=== PATIENT | male | born 1950 | race Caucasian/White ===

== ENCOUNTER 2018-03-20 06:41 | Outpatient (CLI) | payer OTHER | END 2018-03-20 23:59 | disposition home or self-care (01) | LOC: RAD 06:41 | PROVIDERS: ATTEND Family Medicine | DX: E05.90 Thyrotoxicosis, unspecified without thyrotoxic crisis or storm (principal); Z87.891 Personal history of nicotine dependence | CPT/HCPCS: 78014; A9516 ==

== ENCOUNTER 2019-10-03 10:25 | Outpatient (CLI) | payer OTHER ==
[2019-10-03 11:22] LABS: BASOPHILS % (AUTO) 0.7 % (0-1); EOSINOPHILS # (AUTO) 0.2 X10'3 (0-0.9); EOSINOPHILS % (AUTO) 2.2 % (0-6); HEMATOCRIT 39.9 % (42.0-52.0); HEMOGLOBIN 13.6 g/dl (14.0-17.9); LYMPHOCYTES # (AUTO) 1.9 X10'3 (1.1-4.8); LYMPHOCYTES % (AUTO) 26.6 % (21-51); MEAN CORPUSCULAR HEMOGLOBIN 32.9 PG (27.0-31.0); MEAN CORPUSCULAR VOLUME 96.8 FL (78-98); MEAN PLATELET VOLUME 7.8 FL (7.4-10.4); MONOCYTES # (AUTO) 0.5 X10'3 (0-0.9); MONOCYTES % (AUTO) 7.6 % (2-12); NEUTROPHILS # (AUTO) 4.4 X10'3 (1.8-7.7); NEUTROPHILS % (AUTO) 62.9 % (42-75); PLATELET COUNT 242 X10'3 (140-440); RED BLOOD COUNT 4.12 X10'6 (4.70-6.10); RED CELL DISTRIBUTION WIDTH 13.5 % (11.5-14.5); WHITE BLOOD COUNT 6.9 X10'3 (4.5-11.0)
[2019-10-03 11:27] LABS: CLARITY,URINE CLEAR (Clear); COLOR,URINE YELLOW (Yellow); GLUCOSE, URINE NEGATIVE (Neg); KETONES,URINE NEGATIVE (Neg); LEUKOCYTE ESTERASE ,URINE NEGATIVE (Neg); NITRITES, URINE NEGATIVE (Neg); OCCULT BLOOD,URINE NEGATIVE (Neg); PROTEIN,URINE NEGATIVE (Neg); UROBILINOGEN,URINE 0.2 E.U/dL (0.2-1.0)
[2019-10-03 11:28] LABS: UA COLLECTION TYPE CLN CATCH MIDSTREAM
[2019-10-03 11:46] LABS: ALANINE AMINOTRANSFERASE 25 U/L (12-78); ALBUMIN 3.2 G/DL (3.4-5.0); ALBUMIN/GLOBULIN RATIO 0.9 (1.1-1.5); ALKALINE PHOSPHATASE 93 IU/L (46-116); ANION GAP 8 (8-16); ASPARTATE AMINO TRANSFERASE 17 U/L (10-37); BILIRUBIN,TOTAL 0.5 MG/DL (0.1-1.0); BLOOD UREA NITROGEN 22 MG/DL (7-18); BUN/CREATININE RATIO 24.4 (5.4-32.0); CALCIUM 8.6 MG/DL (8.5-10.1); CHLORIDE 106 MMOL/L (99-107); CHOL/HDL RATIO 2.8 (0.00-4.99); CHOLESTEROL 152 MG/DL (0-200); GLUCOSE 85 MG/DL (70-104); HDL CHOLESTEROL 54 MG/DL (35-60); LDL CHOLESTEROL 93 MG/DL (50-100); SODIUM 142 MMOL/L (135-145); TOTAL CARBON DIOXIDE 27.9 MMOL/L (24-32); TOTAL PROTEIN 6.8 G/DL (6.4-8.2); TRIGLYCERIDES 69 MG/DL (20-135); eGFR 84 ML/MIN
== END 2019-10-03 23:59 | disposition home or self-care (01) ==
LOC: LAB 10:25
PROVIDERS: ATTEND Family Medicine
DX: Z00.00 Encounter for general adult medical examination without abnormal findings (principal)
CPT/HCPCS: 36415; 80053; 80061; 81003; 85025

== ENCOUNTER 2021-05-11 05:33 | Day surgery (SDC) | payer BC ==
[2021-05-05 11:31] LABS: BASOPHILS # (AUTO) 0.1 X10'3 (0-0.2); BASOPHILS % (AUTO) 1.2 % (0-1); EOSINOPHILS # (AUTO) 0.1 X10'3 (0-0.9); EOSINOPHILS % (AUTO) 1.6 % (0-6); LYMPHOCYTES # (AUTO) 1.5 X10'3 (1.1-4.8); LYMPHOCYTES % (AUTO) 26.4 % (21-51); MEAN CORPUSCULAR HEMOGLOBIN 32.1 PG (27.0-31.0); MEAN CORPUSCULAR HGB CONC 33.4 g/dL (33.0-36.5); MEAN CORPUSCULAR VOLUME 96.1 FL (78-98); MEAN PLATELET VOLUME 8.1 FL (7.4-10.4); MONOCYTES # (AUTO) 0.4 X10'3 (0-0.9); MONOCYTES % (AUTO) 7.5 % (2-12); NEUTROPHILS # (AUTO) 3.5 X10'3 (1.8-7.7); NEUTROPHILS % (AUTO) 63.3 % (42-75); PRE OP HEMATOCRIT 42.9 % (42.0-52.0); PRE OP HEMOGLOBIN 14.3 g/dL (14.0-17.9); PRE OP PLATELET COUNT 236 X10'3 (140-440); RED BLOOD COUNT 4.47 X10'6 (4.70-6.10); RED CELL DISTRIBUTION WIDTH 14.1 % (11.5-14.5)
[2021-05-05 11:50] LABS: ALBUMIN 3.6 G/DL (3.4-5.0); ALBUMIN/GLOBULIN RATIO 1.1 (1.1-1.5); ALKALINE PHOSPHATASE 95 IU/L (46-116); BLOOD UREA NITROGEN 25 MG/DL (7-18); BUN/CREATININE RATIO 30.9 (5.4-32.0); CALCIUM 9.1 MG/DL (8.5-10.1); CHLORIDE 105 MMOL/L (99-107); CREATININE 0.81 MG/DL (0.60-1.10); PRE OP ALT 32 U/L (30-65); PRE OP ANION GAP 7 (8-16); PRE OP AST 25 U/L (10-37); PRE OP BILIRUB, TOTAL 0.7 MG/DL (0.0-1.0); PRE OP GLUCOSE 93 MG/DL (70-104); PRE OP POTASSIUM 4.5 MMOL/L (3.4-5.1); PRE OP SODIUM 140 MMOL/L (135-145); TOTAL CARBON DIOXIDE 27.6 MMOL/L (24-32); eGFR > 90 ML/MIN
[~2021-05-11] VITALS: Ht 172.7 cm; Wt 74.0 kg
[~2021-05-11 05:33] MED LIST: ASPI-12 PO; CHOL200074 PO; CITA20TA28 PO; IBUP-24 PO; LOSA50TA3 PO; MAGN400C PO; MELA5TAB12 PO; MULT-1172 PO; RESV50CA PO; ROSU10TA2 PO; TURM500C4 PO; UBID1CAP54 PO; cefazolin/dext.iso 2gm/100ml IV ONE; famotidine 20mg tablet PO ONE; ringers solution, lacted 1,000 ML IV SCH
[2021-05-11 05:40] VITALS: BP 157/83
[2021-05-11] MEDS ORDERED: LIDOcaine 1% (10mg/ml) 2ml vial ONE (05:53)
[2021-05-11] MEDS ORDERED: BUPIVAcaine/PF 2.5 mg/ml (0.25%) 30ml vial ONE (06:43)
[2021-05-11] MEDS ORDERED: HYDROmorphone/PF 0.2 MG/ML SYRINGE IV PRN ×2 (07:15)
[2021-05-11] MEDS ORDERED: labetalol 20mg/4ml (5mg/ml) syringe IV PRN (07:15)
[2021-05-11] MEDS ORDERED: morphine 2 MG/ML inj. syringe IV PRN (07:15)
[2021-05-11] MEDS ORDERED: proCHLORperazine 10 MG/2 ml inj IV PRN (07:15)
[2021-05-11] MEDS ORDERED: hydrALAZINE 20mg/ml inj. IV PRN (07:15)
[2021-05-11] MEDS ORDERED: ondansetron/PF 4mg/2ml inj IV PRN (07:15)
[2021-05-11] MEDS ORDERED: ringers solution, lacted 1,000 ML IV SCH (07:15)
[2021-05-11] MEDS ORDERED: meperidine/PF 25mg/ml syringe IV PRN (07:15)
[2021-05-11] MEDS ORDERED: acetaminophen 1,000mg/100ml IV 100 ML IV PRN (07:15)
[2021-05-11] MEDS ORDERED: morphine 4 MG/ML inj SYRINge IV PRN (07:15)
[2021-05-11] MEDS ORDERED: midazolam 1 mg/ML 2ml injection ONE (07:17)
[2021-05-11] MEDS ORDERED: fentaNYL/PF 50MCG/1 ML 2ML syringe ONE (07:17)
[2021-05-11] MEDS ORDERED: LIDOcaine 0.5% (5mg/ml) 50ml vial ONE (07:32)
[2021-05-11 07:45] VITALS: BP 105/65
--- NOTE | 2021-05-11 07:45 | NUR ---
ADMITTED TO PACU FROM OR ACCOMPANIED BY ANESTHESIA. INTIAL PHYSICAL ASSESSMENT DONE AND RECORDED. REPORT RECEIVED FROM ANESTHESIA.
[2021-05-11 07:55] VITALS: BP 108/65
[2021-05-11 08:05] VITALS: BP 109/59
[2021-05-11 08:15] VITALS: BP 107/60
--- NOTE | 2021-05-11 08:20 | NUR ---
DISCHARGE CRITERIA MET, DISCHARGE INSTRUCTIONS GIVEN, DEMONSTRATES VERBAL UNDERSTANDING. DISCHARGED HOME IN GOOD CONDITION.
== END 2021-05-11 08:20 | disposition home or self-care (01) ==
LOC: PAS 05:33
PROVIDERS: ATTEND Orthopaedic Surgery Hand Surgery
DX: G56.01 Carpal tunnel syndrome, right upper limb (principal); M19.90 Unspecified osteoarthritis, unspecified site; I25.10 Atherosclerotic heart disease of native coronary artery without angina pectoris; I10 Essential (primary) hypertension; E78.5 Hyperlipidemia, unspecified; F32.9 Major depressive disorder, single episode, unspecified; Z98.890 Other specified postprocedural states; Z95.5 Presence of coronary angioplasty implant and graft; Z79.899 Other long term (current) drug therapy; Z87.891 Personal history of nicotine dependence; Z79.82 Long term (current) use of aspirin
CPT/HCPCS: 36415; 64721; 80053; 82948; 85025; 93005; J2001; J2250; J3010; J3490; A4215; J7120

== ENCOUNTER 2021-06-22 07:16 | Day surgery (SDC) | payer BC ==
[2021-06-15 15:21] LABS: ALBUMIN 3.3 G/DL (3.4-5.0); ALKALINE PHOSPHATASE 101 IU/L (46-116); BLOOD UREA NITROGEN 22 MG/DL (7-18); CALCIUM 8.5 MG/DL (8.5-10.1); CHLORIDE 108 MMOL/L (99-107); CREATININE 0.88 MG/DL (0.60-1.10); PRE OP ALT 24 U/L (30-65); PRE OP ANION GAP 10 (8-16); PRE OP AST 14 U/L (10-37); PRE OP BILIRUB, TOTAL 0.5 MG/DL (0.0-1.0); PRE OP GLUCOSE 93 MG/DL (70-104); PRE OP POTASSIUM 4.3 MMOL/L (3.4-5.1); PRE OP SODIUM 145 MMOL/L (135-145); TOTAL CARBON DIOXIDE 26.7 MMOL/L (24-32); TOTAL PROTEIN 6.6 G/DL (6.4-8.2); eGFR 86 ML/MIN
[2021-06-15 15:22] LABS: BASOPHILS # (AUTO) 0.1 X10'3 (0-0.2); EOSINOPHILS # (AUTO) 0.1 X10'3 (0-0.9); EOSINOPHILS % (AUTO) 2.1 % (0-6); LYMPHOCYTES # (AUTO) 1.5 X10'3 (1.1-4.8); LYMPHOCYTES % (AUTO) 28.2 % (21-51); MEAN CORPUSCULAR HEMOGLOBIN 32.2 PG (27.0-31.0); MEAN CORPUSCULAR HGB CONC 33.2 g/dL (33.0-36.5); MEAN CORPUSCULAR VOLUME 96.8 FL (78-98); MEAN PLATELET VOLUME 8.5 FL (7.4-10.4); MONOCYTES # (AUTO) 0.4 X10'3 (0-0.9); MONOCYTES % (AUTO) 7.8 % (2-12); NEUTROPHILS # (AUTO) 3.2 X10'3 (1.8-7.7); NEUTROPHILS % (AUTO) 60.9 % (42-75); PRE OP HEMATOCRIT 42.1 % (42.0-52.0); PRE OP PLATELET COUNT 211 X10'3 (140-440); RED BLOOD COUNT 4.35 X10'6 (4.70-6.10); RED CELL DISTRIBUTION WIDTH 13.3 % (11.5-14.5)
[~2021-06-22] VITALS: Ht 172.7 cm; Wt 70.4 kg
[2021-06-22 07:30] VITALS: BP 191/93
[2021-06-22] MEDS ORDERED: LIDOcaine 0.5% (5mg/ml) 50ml vial ONE (10:28)
[2021-06-22] MEDS ORDERED: midazolam 1 mg/ML 2ml injection ONE (10:30)
[2021-06-22] MEDS ORDERED: fentaNYL/PF 50MCG/1 ML 2ML syringe ONE (10:30)
[2021-06-22] MEDS ORDERED: BUPIVAcaine/PF 2.5mg/ml (0.25%) 10ml vial ONE (10:40)
[2021-06-22] MEDS ORDERED: hydrALAZINE 20mg/ml inj. IV ONE (10:42)
[2021-06-22 11:00] VITALS: BP 159/72
--- NOTE | 2021-06-22 11:00 | NUR ---
ADMITTED TO PACU FROM OR ACCOMPANIED BY ANESTHESIA. INTIAL PHYSICAL ASSESSMENT DONE AND RECORDED. REPORT RECEIVED FROM ANESTHESIA.
[2021-06-22 11:10] VITALS: BP 156/70
[2021-06-22 11:20] VITALS: BP 155/72
[2021-06-22 11:30] VITALS: BP 154/70
[2021-06-22 11:40] VITALS: BP 164/72
--- NOTE | 2021-06-22 11:45 | NUR ---
DISCHARGE CRITERIA MET, DISCHARGE INSTRUCTIONS GIVEN, DEMONSTRATES VERBAL UNDERSTANDING. DISCHARGED HOME IN GOOD CONDITION.
== END 2021-06-22 11:45 | disposition home or self-care (01) ==
LOC: PAS 07:16
PROVIDERS: ATTEND Orthopaedic Surgery Hand Surgery
DX: G56.02 Carpal tunnel syndrome, left upper limb (principal); E78.5 Hyperlipidemia, unspecified; I10 Essential (primary) hypertension; Z20.822 Contact with and (suspected) exposure to COVID-19; Z79.899 Other long term (current) drug therapy; Z98.890 Other specified postprocedural states; Z79.82 Long term (current) use of aspirin; Z87.891 Personal history of nicotine dependence
CPT/HCPCS: 36415; 64721; 80053; 82948; 85025; J0360; J2001; J2250; J3010; J3490; U0003; U0005; Z7506; Z7512; A4215; J7120

== ENCOUNTER → 2021-08-18 | Outpatient (CLI) | payer BC ==
[~2021-08-18] MED LIST changes: -cefazolin/dext.iso 2gm/100ml IV ONE; -famotidine 20mg tablet PO ONE; -ringers solution, lacted 1,000 ML IV SCH
[2021-08-18 10:00] LABS: BASOPHILS % (AUTO) 0.9 % (0-1); EOSINOPHILS # (AUTO) 0.1 X10'3 (0-0.9); EOSINOPHILS % (AUTO) 1.8 % (0-6); HEMATOCRIT 41.4 % (42.0-52.0); LYMPHOCYTES # (AUTO) 1.3 X10'3 (1.1-4.8); LYMPHOCYTES % (AUTO) 26.4 % (21-51); MEAN CORPUSCULAR HEMOGLOBIN 32.6 PG (27.0-31.0); MEAN CORPUSCULAR HGB CONC 33.9 g/dL (33.0-36.5); MEAN CORPUSCULAR VOLUME 96.2 FL (78-98); MEAN PLATELET VOLUME 8.3 FL (7.4-10.4); MONOCYTES # (AUTO) 0.3 X10'3 (0-0.9); MONOCYTES % (AUTO) 7.1 % (2-12); NEUTROPHILS # (AUTO) 3.1 X10'3 (1.8-7.7); NEUTROPHILS % (AUTO) 63.8 % (42-75); PLATELET COUNT 237 X10'3 (140-440); RED CELL DISTRIBUTION WIDTH 13.6 % (11.5-14.5); WHITE BLOOD COUNT 4.9 X10'3 (4.5-11.0)
[2021-08-18 10:15] LABS: COLOR,URINE YELLOW (Yellow); UA COLLECTION TYPE VOIDED
[2021-08-18 10:16] LABS: CLARITY,URINE CLEAR (Clear); GLUCOSE, URINE NEGATIVE (Neg); KETONES,URINE NEGATIVE (Neg); LEUKOCYTE ESTERASE ,URINE NEGATIVE (Neg); NITRITES, URINE NEGATIVE (Neg); OCCULT BLOOD,URINE NEGATIVE (Neg); PROTEIN,URINE NEGATIVE (Neg); UROBILINOGEN,URINE 0.2 E.U/dL (0.2-1.0)
[2021-08-18 10:24] LABS: ALANINE AMINOTRANSFERASE 32 U/L (12-78); ALBUMIN 3.4 G/DL (3.4-5.0); ALKALINE PHOSPHATASE 83 IU/L (46-116); ASPARTATE AMINO TRANSFERASE 22 U/L (10-37); BILIRUBIN,TOTAL 0.5 MG/DL (0.1-1.0); BLOOD UREA NITROGEN 21 MG/DL (7-18); BUN/CREATININE RATIO 27.3 (5.4-32.0); CALCIUM 8.8 MG/DL (8.5-10.1); CHLORIDE 106 MMOL/L (99-107); CHOL/HDL RATIO 2.3 (0.00-4.99); CHOLESTEROL 153 MG/DL (0-200); CREATININE 0.77 MG/DL (0.60-1.10); GLUCOSE 92 MG/DL (70-104); HDL CHOLESTEROL 66 MG/DL (35-60); LDL CHOLESTEROL 78 MG/DL (50-100); TOTAL CARBON DIOXIDE 29.6 MMOL/L (24-32); TOTAL PROTEIN 6.9 G/DL (6.4-8.2); TRIGLYCERIDES 42 MG/DL (20-135); eGFR > 90 ML/MIN
[2021-08-18 10:28] LABS: C-REACTIVE PROTEIN < 0.05 MG/DL (0.0-0.5); POTASSIUM 4.4 MMOL/L (3.5-5.1); SODIUM 141 MMOL/L (135-145)
[2021-08-18 11:16] LABS: ANION GAP 5 (8-16)
== END | disposition home or self-care (01) ==
LOC: RAD 08:58
PROVIDERS: ATTEND Family Medicine
DX: M50.323 Other cervical disc degeneration at C6-C7 level (principal); G31.89 Other specified degenerative diseases of nervous system; G95.89 Other specified diseases of spinal cord; M25.78 Osteophyte, vertebrae; I65.23 Occlusion and stenosis of bilateral carotid arteries; R63.4 Abnormal weight loss; R29.898 Other symptoms and signs involving the musculoskeletal system; R20.0 Anesthesia of skin; R53.83 Other fatigue; R53.81 Other malaise; M62.521 Muscle wasting and atrophy, not elsewhere classified, right upper arm; M62.522 Muscle wasting and atrophy, not elsewhere classified, left upper arm
CPT/HCPCS: 36415; 70551; 71046; 71250; 71271; 72052; 72141; 80053; 80061; 81003; 82043; 82570; 84439; 84443; 85025; 85651; 86140; 93880

== ENCOUNTER 2021-10-09 08:21 | Outpatient (CLI) | payer BC | END 2021-10-09 23:59 | disposition home or self-care (01) | LOC: RAD 08:21 | PROVIDERS: ATTEND Family Medicine | DX: E04.2 Nontoxic multinodular goiter (principal) | CPT/HCPCS: 76536 ==

== ENCOUNTER 2021-11-05 09:11 | Outpatient (CLI) | payer BC | END 2021-11-05 23:59 | disposition home or self-care (01) | LOC: 64 CT 09:11 | PROVIDERS: ATTEND Orthopaedic Surgery | DX: M50.00 Cervical disc disorder with myelopathy, unspecified cervical region (principal); M48.02 Spinal stenosis, cervical region; M25.78 Osteophyte, vertebrae; M85.88 Other specified disorders of bone density and structure, other site; R91.1 Solitary pulmonary nodule; E04.2 Nontoxic multinodular goiter | CPT/HCPCS: 72125 ==

== ENCOUNTER 2021-11-16 09:57 | Outpatient (CLI) | payer BC ==
[2021-11-16 11:34] LABS: GLU TOLERANCE INTERP SEE INTERP
[2021-11-16 11:41] LABS: GLUCOSE,FASTING (TOLERANCE) 90 MG/DL (70-104)
[2021-11-16 12:43] LABS: HIV ANTIBODY 1&2 RAPID NON-REACTIVE (Neg)
[2021-11-17 13:06] LABS: ANTINUCLEAR ANTIBODIES Negative (Negative); IMMUNOGLOBULIN A, QN, SERUM 268 mg/dL (61-437); IMMUNOGLOBULIN G, QN, SERUM 1192 mg/dL (603-1613); IMMUNOGLOBULIN M, QN, SERUM 126 mg/dL (20-172)
[2021-11-18 17:43] LABS: T-TRANSGLUTAMINASE IGA <2 U/mL (0-3)
[2021-11-18 23:20] LABS: ANGIOTESIN-CONVERTING ENZYME 58 U/L (14-82)
== END 2021-11-16 23:59 | disposition home or self-care (01) ==
LOC: LAB 09:57
PROVIDERS: ATTEND Psychiatry & Neurology Neurology
DX: R20.2 Paresthesia of skin (principal); R53.1 Weakness; Z79.899 Other long term (current) drug therapy
CPT/HCPCS: 36415; 82164; 82175; 82570; 82607; 82746; 82784; 83655; 83825; 84425; 86038; 86235; 86334; 86592; 86618; 86703; 86803

== ENCOUNTER 2021-11-16 10:06 | Outpatient (CLI) | payer BC | END 2021-11-16 23:59 | disposition home or self-care (01) | LOC: LAB 10:06 | PROVIDERS: ATTEND Surgery | DX: R91.8 Other nonspecific abnormal finding of lung field (principal); J43.8 Other emphysema; I25.10 Atherosclerotic heart disease of native coronary artery without angina pectoris; I70.0 Atherosclerosis of aorta; E04.9 Nontoxic goiter, unspecified; K44.9 Diaphragmatic hernia without obstruction or gangrene; N28.1 Cyst of kidney, acquired; M48.14 Ankylosing hyperostosis [Forestier], thoracic region | CPT/HCPCS: 71250 ==

== ENCOUNTER 2021-11-27 07:33 | Day surgery (SDC) | payer BC ==
[2021-11-27] VITALS (14 sets, daily range): BP systolic 114–206; BP diastolic 74–120
[~2021-11-27] VITALS: Ht 172.7 cm; Wt 74.8 kg
[2021-11-27] MEDS ORDERED: ASPI-611 PO (08:51)
[2021-11-27] MEDS ORDERED: DULO30CA52 PO (08:51)
[2021-11-27] MEDS ORDERED: VARE1TAB24 PO (08:51)
[2021-11-27 13:38] LABS: GLUCOSE,CSF 56 MG/DL (40-75); TOTAL PROTEIN,CSF 68 MG/DL (30-60)
[2021-11-27 14:15] LABS: APPEARANCE,CSF CLOUDY
[2021-11-27 14:16] LABS: CSF RBC 5175 /CU MM (0); CSF SUPERNATANT COLOR PINK; CSF VOLUME 13 ML; CSF WBC CT 5 /CU MM (0-5); TUBE# COUNTED 3
== END 2021-11-27 14:03 | disposition home or self-care (01) ==
LOC: SSTAY O 07:33
PROVIDERS: ATTEND Psychiatry & Neurology Neurology
DX: G62.9 Polyneuropathy, unspecified (principal); I10 Essential (primary) hypertension; E03.9 Hypothyroidism, unspecified; E78.5 Hyperlipidemia, unspecified; F32.9 Major depressive disorder, single episode, unspecified; Z72.0 Tobacco use; Z85.828 Personal history of other malignant neoplasm of skin; Z98.890 Other specified postprocedural states; Z79.899 Other long term (current) drug therapy
CPT/HCPCS: 36415; 62328; 77012; 82164; 82945; 84157; 87476; 89051

== ENCOUNTER 2021-12-14 08:10 | Outpatient (CLI) | payer BC ==
[2021-12-14] VITALS (8 sets, daily range): BP systolic 160–195; BP diastolic 76–98
[~2021-12-14] VITALS: Ht 172.7 cm; Wt 75.3 kg
[~2021-12-14 08:10] MED LIST changes: -ASPI-12 PO; +ASPI-611 PO; +DULO30CA52 PO; -IBUP-24 PO; -MAGN400C PO; -MELA5TAB12 PO; +VARE1TAB24 PO
[2021-12-14] MEDS ORDERED: regadenoson 0.4mg/5ml syringe IV ONE (09:10)
[2021-12-14] MEDS ORDERED: nitroGLYCERIN 0.4mg SUBLingual tab SL PRN (09:10)
[2021-12-14] MEDS ORDERED: aminophylline 250mg/10ml inj. IV PRN (09:10)
== END 2021-12-14 23:59 | disposition home or self-care (01) ==
LOC: CARD DIAG 08:10
PROVIDERS: ATTEND Internal Medicine Interventional Cardiology
DX: Z01.818 Encounter for other preprocedural examination (principal); I08.0 Rheumatic disorders of both mitral and aortic valves; I25.10 Atherosclerotic heart disease of native coronary artery without angina pectoris; I11.9 Hypertensive heart disease without heart failure; Z95.5 Presence of coronary angioplasty implant and graft
CPT/HCPCS: 78452; 93017; 93306; A9500; J0280; J2785

== ENCOUNTER 2021-12-31 06:35 | Day surgery (SDC) | payer BC ==
[~2021-12-31] VITALS: Ht 172.7 cm; Wt 76.6 kg
[2021-12-31] VITALS (15 sets, daily range): BP systolic 141–162; BP diastolic 64–94
[2021-12-31] MEDS ORDERED: acetaminophen 325mg tablet PO ONE (07:15)
[2021-12-31] MEDS ORDERED: diphenhydrAMINE 25mg capsule PO ONE (07:20)
[2021-12-31] MEDS ORDERED: IMMUNE GLOBUL IV ONE (07:30)
[2021-12-31] MEDS ORDERED: IGA AVG IV ONE (07:30)
[2021-12-31] MEDS ORDERED: GLY IV ONE (07:30)
[2021-12-31] MEDS ORDERED: epiNEPHrine 1 mg/ml inj IM PRN (07:50)
--- NOTE | 2021-12-31 13:50 | NUR ---
Patient stable for discharge s/p IV infusion. Patient a/o x 4 with stable vital signs. Patient tolerating PO intake and able to void at time of discharge. Patient ambulated to [facility] for transport home by self.
== END 2021-12-31 13:50 | disposition home or self-care (01) ==
LOC: SSTAY O 06:35
PROVIDERS: ATTEND Psychiatry & Neurology Neurology
DX: G61.81 Chronic inflammatory demyelinating polyneuritis (principal)
CPT/HCPCS: 96374; J1459; Q0163

== ENCOUNTER 2022-02-10 23:56 | Inpatient (IN) | payer BC, MEDICARE ==
[~2022-02-10] VITALS: Ht 172.7 cm; Wt 77.6 kg
[2022-02-11] VITALS (9 sets, daily range): BP systolic 141–179; BP diastolic 53–87
[2022-02-11] MEDS ORDERED: fentaNYL/PF 50MCG/1 ML 2ML syringe IV ONE ×2 (03:10→08:25)
[2022-02-11 03:13] LABS: BASOPHILS # (AUTO) 0.1 X10'3 (0-0.2); BASOPHILS % (AUTO) 0.9 % (0-1); EOSINOPHILS # (AUTO) 0.2 X10'3 (0-0.9); EOSINOPHILS % (AUTO) 2.5 % (0-6); HEMOGLOBIN 10.9 g/dl (14.0-17.9); LYMPHOCYTES % (AUTO) 12.2 % (21-51); MEAN CORPUSCULAR HEMOGLOBIN 30.5 PG (27.0-31.0); MEAN CORPUSCULAR VOLUME 92.4 FL (78-98); MEAN PLATELET VOLUME 7.3 FL (7.4-10.4); MONOCYTES # (AUTO) 0.7 X10'3 (0-0.9); MONOCYTES % (AUTO) 8.7 % (2-12); NEUTROPHILS # (AUTO) 6.2 X10'3 (1.8-7.7); NEUTROPHILS % (AUTO) 75.7 % (42-75); PLATELET COUNT 362 X10'3 (140-440); RED BLOOD COUNT 3.58 X10'6 (4.70-6.10); RED CELL DISTRIBUTION WIDTH 14.2 % (11.5-14.5); WHITE BLOOD COUNT 8.2 X10'3 (4.5-11.0)
[2022-02-11 03:30] LABS: APTT 30 SECONDS (22-32)
[2022-02-11 03:33] LABS: ALANINE AMINOTRANSFERASE 27 U/L (12-78); ALBUMIN 2.7 G/DL (3.4-5.0); ALBUMIN/GLOBULIN RATIO 0.6 (1.1-1.5); ALKALINE PHOSPHATASE 101 IU/L (46-116); ANION GAP 8 (8-16); ASPARTATE AMINO TRANSFERASE 25 U/L (10-37); BILIRUBIN,TOTAL 0.3 MG/DL (0.1-1.0); BLOOD UREA NITROGEN 17 MG/DL (7-18); BUN/CREATININE RATIO 18.9 (5.4-32.0); CALCIUM 8.4 MG/DL (8.5-10.1); CHLORIDE 102 MMOL/L (99-107); GLUCOSE 107 MG/DL (70-104); POTASSIUM 4.1 MMOL/L (3.5-5.1); SODIUM 137 MMOL/L (135-145); TOTAL CARBON DIOXIDE 26.8 MMOL/L (24-32); TOTAL PROTEIN 6.9 G/DL (6.4-8.2); eGFR 83 ML/MIN
[2022-02-11] MEDS ORDERED: iohexol 350MG/ML 100ml bottle IV ONE (03:33)
[2022-02-11] MEDS ORDERED: iohexol 350 MG/ML 50ML vial IV ONE (03:33)
--- NOTE | 2022-02-11 04:00 | NUR ---
Pt presents to Ed with left leg swelling and redness. Pt had a spinal fusion a couple days prior and concerned about a blood clot. Pt has 1 + edema, non pitting. 2 + bilat LE pulses equal. Pt reports no injury. States that this happened a couple hours prior. No acute distress noted.
--- NOTE | 2022-02-11 04:08 | NUR ---
pt to ct
--- NOTE | 2022-02-11 05:34 | NUR ---
Pt currently getting vascular US.
[2022-02-11] MEDS ORDERED: colchicine 0.6mg tablet PO ONE (05:50)
[2022-02-11] MEDS ORDERED: heparin 10,000 units/1 ML INJ IV ONE ×3 (07:50→08:25)
[2022-02-11] MEDS ORDERED: heparin 10,000 units/1 ML INJ IV PRN ×3 (07:50→08:25)
--- NOTE | 2022-02-11 08:00 | NUR ---
at bedside to assess pt's leg with US.
[2022-02-11] MEDS ORDERED: heparin 25,000 UNIT/250ml bag 250 ML IV SCH ×2 (08:20→08:25)
--- NOTE | 2022-02-11 08:20 | NUR ---
Pt complaining of LLE pain. MD notified, received orders to repeat Fentanyl dose as previously ordered.
[2022-02-11] MEDS ORDERED: potassium CL 10mEq/100ml bag 100 ML IV PRN (08:25)
[2022-02-11] MEDS ORDERED: acetaminophen 325mg tablet PO PRN (08:25)
[2022-02-11] MEDS ORDERED: HYDROmorphone/PF 0.2 MG/ML SYRINGE IV PRN ×3 (08:25→16:45)
[2022-02-11] MEDS ORDERED: potassium Cl 20 mEq SR tablet PO PRN ×2 (08:25)
[2022-02-11] MEDS ORDERED: magnesium 4gm in 100ml NS 100 ML IV PRN (08:25)
[2022-02-11] MEDS ORDERED: ondansetron/PF 4mg/2ml inj IV PRN ×2 (08:25→16:45)
[2022-02-11] MEDS ORDERED: magnesium 2GM in 50ml NS 50 ML IV PRN (08:25)
[2022-02-11] MEDS ORDERED: HYDROmorphone inj. 0.5 MG/0.5 ML DISP.SYRIN IV PRN (08:25)
[2022-02-11] MEDS ORDERED: PERFLUTREN PROTEIN-A MICROSPHR (Optison) 0.22 MG/ML 3ML VIAL IV ONE (08:25)
[2022-02-11] MEDS ORDERED: hydrALAZINE 20mg/ml inj. IV PRN (08:35)
--- NOTE | 2022-02-11 09:06 | NUR ---
US tech at bedside for further studies as ordered.
[2022-02-11] MEDS: heparin 25,000 UNIT/250ml bag 250 ML IV SCH ×2 (09:52→21:15)
--- NOTE | 2022-02-11 10:10 | NUR ---
Heparin gtt started per order. US still at bedside for imaging studies. Pt resting comfortably, family member at bedside.
[2022-02-11] MEDS ORDERED: HYDR-3972 PO (10:34)
[2022-02-11] MEDS ORDERED: DOCU-342 PO (10:34)
[2022-02-11] MEDS ORDERED: CEPH-585 PO (10:34)
[2022-02-11] MEDS ORDERED: CYCL5TAB PO (10:34)
[2022-02-11] MEDS ORDERED: GABA600T PO (10:34)
[2022-02-11] MEDS ORDERED: RESV1TAB2 PO (10:38)
[2022-02-11] MEDS ORDERED: heparin 10,000 units/1 ML INJ ONE (12:27)
[2022-02-11] MEDS ORDERED: iohexol 300 MG/1 ML 50ml polymer ONE (12:34)
--- NOTE | 2022-02-11 12:50 | NUR ---
Heparin paused for 120 mins per protocol
--- NOTE | 2022-02-11 12:51 | NUR ---
REPEAT PTT ORDERED FOR 1500.
[2022-02-11] MEDS ORDERED: LIDOCAINE 1% w/preservative (10 MG/ML) inj. 10mL VIAL ONE (13:27)
[2022-02-11] MEDS ORDERED: iohexol 300mg/ml 100ml inj. ONE (13:27)
[2022-02-11] MEDS ORDERED: fentaNYL/PF 50MCG/1 ML 2ML syringe ONE ×3 (13:27→14:41)
[2022-02-11] MEDS ORDERED: heparin 1,000 UNITS/NS 500ml 500 ML ONE (13:27)
[2022-02-11] MEDS ORDERED: midazolam 1 mg/ML 2ml injection ONE ×3 (13:51→14:33)
[2022-02-11] MEDS ORDERED: hydrALAZINE 20mg/ml inj. IV ONE (14:01)
[2022-02-11] MEDS ORDERED: fentaNYL /PF 50mcg/ml 5ml ampule ONE (14:33)
--- NOTE | 2022-02-11 15:44 | NUR ---
2250 Keith Melgar, Dr. Colon called to say OR was awaiting for vein mapping. Do you have an et? Thanks Neha ext [phone]
[2022-02-11 15:53] LABS: APTT 37 SECONDS (22-32)
[2022-02-11] MEDS ORDERED: rocuronium 10mg/ml inj IV ONE (16:40)
[2022-02-11] MEDS ORDERED: cefazolin/dext.iso 2,000MG/50 ML BAG IV ONE (16:40)
[2022-02-11] MEDS ORDERED: sevoflurane 250ml liquid IH ONE (16:40)
[2022-02-11] MEDS ORDERED: dexamethasone sod phosphate 10mg/ml inj ONE (16:40)
[2022-02-11] MEDS ORDERED: propofol 10mg/ml 20ml vial IV ONE (16:40)
[2022-02-11] MEDS ORDERED: LIDOcaine 1% (10mg/ml)w/preservative inj. 20ml MDV ONE (16:40)
[2022-02-11] MEDS ORDERED: morphine 4 MG/ML inj SYRINge IV PRN (16:45)
[2022-02-11] MEDS ORDERED: morphine 2 MG/ML inj. syringe IV PRN (16:45)
[2022-02-11] MEDS ORDERED: ringers solution, lacted 1,000 ML IV SCH (16:45)
[2022-02-11] MEDS ORDERED: HYDROcodone/acetaminophen 10/325mg tab PO PRN (16:55)
[2022-02-11] MEDS ORDERED: docusate sod 100mg capsule PO PRN (16:55)
[2022-02-11] MEDS ORDERED: propofol 1000mg/100ml bottle 100 ML IV ONE ×2 (17:54→20:27)
[2022-02-11] MEDS ORDERED: ketamine 50mg/5ml syringe ONE (18:05)
[2022-02-11] MEDS: ringers solution, lacted 1,000 ML IV SCH (18:20)
--- NOTE | 2022-02-11 18:25 | NUR ---
Problems reprioritized. Patient report given, questions answered & plan of care reviewed with peter HORN.
--- NOTE | 2022-02-11 18:27 | NUR ---
Patient arrived to unit at 1800 and placed on bedside monitor. ART line zeroed/transduced with SBP in the 160-180s; Dr. Sidhu with orders for Propofol and Fentanyl. 10mcg bolus of Diprivan showed improvement with SBP to the 140-150s. Other vital signs stable. Report given to Nelson HORN at the bedside with all questions answered.
[2022-02-11] MEDS: FENTANYL-0.9 % NACL/PF 100 ML IV PRN ×2 (18:34→23:35)
--- NOTE | 2022-02-11 19:00 | NUR ---
Received report from Donnell HORN as patient had just been transferred from OR.
[2022-02-11] MEDS: varenicline tartrate 1mg tablet PO SCH (20:00)
[2022-02-11] MEDS: docusate sod 100mg capsule PO SCH (20:00)
[2022-02-11] MEDS: K and/or MAG REPLACEMENT MC SCH (20:00)
[2022-02-11] MEDS: cephalexin 500mg capsule PO SCH (20:00)
[2022-02-11 20:03] LABS: APTT 46 SECONDS (22-32)
[2022-02-11] MEDS: propofol 1000mg/100ml bottle 100 ML IV SCH (20:35)
[2022-02-11] MEDS: normal saline 1000ml 1,000 ML IV SCH (20:55)
--- NOTE | 2022-02-11 20:59 | NUR ---
Dr. Mcdonald rounded on pt. Keep PTT 60-80 use protocol for titration. Turn heprin off as pt leaves for OR in the AM. Ok to place NG tube for medication administration. Keep pt on Propofol and fentanyl drip for pain and sedation over night and into OR.
[2022-02-11] MEDS: cyclobenzaprine 10mg tablet PO SCH (21:00)
[2022-02-11] MEDS: gabapentin 300mg capsule PO SCH (21:00)
[2022-02-12] VITALS (37 sets, daily range): BP systolic 97–202; BP diastolic 46–108
[2022-02-12 01:03] LABS: BASOPHILS % (AUTO) 0.3 % (0-1); EOSINOPHILS % (AUTO) 0.1 % (0-6); HEMATOCRIT 29.9 % (42.0-52.0); HEMOGLOBIN 10.2 g/dl (14.0-17.9); LYMPHOCYTES # (AUTO) 0.4 X10'3 (1.1-4.8); LYMPHOCYTES % (AUTO) 6.1 % (21-51); MEAN CORPUSCULAR HEMOGLOBIN 31.7 PG (27.0-31.0); MEAN CORPUSCULAR VOLUME 93.1 FL (78-98); MEAN PLATELET VOLUME 7.5 FL (7.4-10.4); MONOCYTES # (AUTO) 0.1 X10'3 (0-0.9); MONOCYTES % (AUTO) 2.5 % (2-12); NEUTROPHILS # (AUTO) 5.4 X10'3 (1.8-7.7); PLATELET COUNT 289 X10'3 (140-440); RED BLOOD COUNT 3.21 X10'6 (4.70-6.10); RED CELL DISTRIBUTION WIDTH 14.3 % (11.5-14.5); WHITE BLOOD COUNT 5.9 X10'3 (4.5-11.0)
[2022-02-12 01:18] LABS: ALANINE AMINOTRANSFERASE 25 U/L (12-78); ALBUMIN 2.3 G/DL (3.4-5.0); ALBUMIN/GLOBULIN RATIO 0.6 (1.1-1.5); ALKALINE PHOSPHATASE 97 IU/L (46-116); ANION GAP 5 (8-16); ASPARTATE AMINO TRANSFERASE 22 U/L (10-37); BILIRUBIN,TOTAL 0.4 MG/DL (0.1-1.0); BLOOD UREA NITROGEN 12 MG/DL (7-18); BUN/CREATININE RATIO 15.8 (5.4-32.0); CALCIUM 8.2 MG/DL (8.5-10.1); CHLORIDE 107 MMOL/L (99-107); CHOL/HDL RATIO 2.4 (0.00-4.99); CHOLESTEROL 129 MG/DL (0-200); CREATININE 0.76 MG/DL (0.60-1.10); GLUCOSE 131 MG/DL (70-104); HDL CHOLESTEROL 54 MG/DL (35-60); LDL CHOLESTEROL 70 MG/DL (50-100); POTASSIUM 4.3 MMOL/L (3.5-5.1); SODIUM 137 MMOL/L (135-145); TOTAL PROTEIN 6.1 G/DL (6.4-8.2); TRIGLYCERIDES 18 MG/DL (20-135); eGFR > 90 ML/MIN
[2022-02-12] MEDS ORDERED: albumin (Human) 5% 250ml 250 ML IV ONE ×2 (02:05)
--- NOTE | 2022-02-12 02:08 | NUR ---
Pt. Ptt >139 Dr Mcdonald notified. He wanted heparin stopped one hour and restarted at 1300 (200 U less). PT Urinary output tapering off to less than [address] Mcdonald ordered 500 ml of 5% albumin.
[2022-02-12] MEDS: normal saline 1000ml 1,000 ML IV SCH ×3 (02:55→21:39)
[2022-02-12] MEDS: propofol 1000mg/100ml bottle 100 ML IV SCH (03:16)
[2022-02-12 03:26] LABS: ABG HCO3 20.8 mmol/L (22.0-26.0); ABG OXYGEN SATURATION 98.5 % (94-97); ABG PCO2 (T) 31.7 mmHg (35.0-48.0); ABG PO2 (T) 136.3 mmHg (75.0-100.0); FCOHb 0.3 % (0.0-3.9); FMetHb 0.3 % (0.0-1.5); FO2Hb 97.9 % (94-97); PATIENT TEMPERATURE 36.6; PEEP 5 cm H2O; RESPIRATORY RATE 14 b/min; TIDAL VOLUME 475 mL; TOTAL HEMOGLOBIN 10.3 G/dl (14.0-18.0)
[2022-02-12] MEDS: heparin 25,000 UNIT/250ml bag 250 ML IV SCH (03:26)
[2022-02-12] MEDS: cephalexin 500mg capsule PO SCH ×4 (06:36→19:36)
[2022-02-12] MEDS ORDERED: VIT E ACETATE PO SCH (08:00)
[2022-02-12] MEDS: atorvastatin 20mg tablet PO SCH (08:00)
[2022-02-12] MEDS: losartan 50mg tablet PO SCH (08:00)
[2022-02-12] MEDS: cholecalciferol (vitamin D3) 1,000 unit (25mcg) tablet PO SCH (08:00)
[2022-02-12] MEDS ORDERED: RESVERATROL PO SCH (08:00)
[2022-02-12] MEDS: gabapentin 300mg capsule PO SCH ×3 (08:00→21:39)
[2022-02-12] MEDS: aspirin 81mg, enteric-coated 1 TAB TABLET.DR PO SCH (08:00)
[2022-02-12] MEDS: K and/or MAG REPLACEMENT MC SCH ×2 (08:00→19:38)
[2022-02-12] MEDS ORDERED: GRAPE SKIN EXTRACT PO SCH (08:00)
[2022-02-12] MEDS: cyclobenzaprine 10mg tablet PO SCH ×3 (08:00→21:35)
[2022-02-12] MEDS ORDERED: UBIDECARENONE PO SCH (08:00)
[2022-02-12] MEDS: citalopram 20mg tablet PO SCH (08:00)
[2022-02-12] MEDS: duloxetine 30mg CAPSULE.DR PO SCH (08:00)
[2022-02-12] MEDS: multivitamins, therapeutics tablet PO SCH (08:00)
[2022-02-12] MEDS: varenicline tartrate 1mg tablet PO SCH ×2 (08:00→20:00)
[2022-02-12] MEDS: docusate sod 100mg capsule PO SCH ×2 (08:00→19:36)
[2022-02-12] MEDS: FENTANYL-0.9 % NACL/PF 100 ML IV PRN ×2 (09:15→21:54)
--- NOTE | 2022-02-12 09:24 | NUR ---
Surgery called will pharmacy picking tech pt at 0930 heparin turned off as per Dr. Mcdonald
[2022-02-12] MEDS ORDERED: heparin 10,000 units/1 ML INJ ONE (09:30)
[2022-02-12] MEDS ORDERED: sevoflurane 250ml liquid IH ONE (10:16)
[2022-02-12] MEDS ORDERED: dexamethasone sod phosphate 4mg/ml inj. ONE (10:16)
[2022-02-12] MEDS ORDERED: rocuronium 10mg/ml inj IV ONE (10:16)
[2022-02-12] MEDS ORDERED: glycopyrrolate 0.2mg/ml inj ONE (10:16)
[2022-02-12] MEDS ORDERED: neostigmine methylsulfate 1 MG/ML 10ml vial ONE (10:16)
[2022-02-12] MEDS ORDERED: ondansetron/PF 4mg/2ml inj ONE (10:16)
[2022-02-12] MEDS ORDERED: hydrALAZINE 20mg/ml inj. IV ONE (10:16)
[2022-02-12] MEDS ORDERED: acetaminophen 1000 MG/100ml vial IV ONE (10:16)
[2022-02-12] MEDS ORDERED: cefazolin 2gm/NS 100ml IVPB IV ONE (10:16)
--- NOTE | 2022-02-12 10:26 | NUR ---
pt to surgery
[2022-02-12] MEDS ORDERED: iohexol 300 MG/1 ML 50ml polymer ONE (12:31)
--- NOTE | 2022-02-12 12:43 | NUR ---
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 Javon 12 w/ skin intact outside likely surgical site today in OR. ZONIA d/w JUSTINA this AM who reports pt intubated solely for procedure. Addendum: 02/12/22 at [address] Amended: Links added.
--- NOTE | 2022-02-12 14:06 | NUR ---
Received from OR via HOSPITAL BED , accompanied by Anesthesiologist DR COWART and report given by Anesthesiolgist. PT PRESENTS WITH 18G LEFT HAND, 18G LEFT AC, LEFT DISTAL PUSES MARKED AND PALPABLE, RIGHT GROIN DRESSING PROVENA DRESSING, ISLAND DRESSING LOWER LEFT LEG. VSS. Addendum: 02/12/22 at 1426 by Kimberley Dangelo RN, RN Amended: Links added.
[2022-02-12] MEDS ORDERED: labetalol 20mg/4ml (5mg/ml) syringe IV ONE (14:11)
[2022-02-12] MEDS ORDERED: morphine 4 MG/ML inj SYRINge IV PRN (14:20)
[2022-02-12] MEDS ORDERED: ondansetron/PF 4mg/2ml inj IV PRN (14:20)
[2022-02-12] MEDS ORDERED: morphine 2 MG/ML inj. syringe IV PRN (14:20)
[2022-02-12] MEDS ORDERED: HYDROmorphone/PF 0.2 MG/ML SYRINGE IV PRN ×2 (14:20)
[2022-02-12] MEDS ORDERED: ringers solution, lacted 1,000 ML IV SCH (14:20)
--- NOTE | 2022-02-12 14:26 | NUR ---
DR COWART GAVE 5MG LABETALOL IV PUSH, 4MG MORPHINE IV PUSH IN RECOVERY. Addendum: 02/12/22 at 1427 by Kimberley Dangelo RN, RN Amended: Links added.
[2022-02-12 14:32] LABS: APTT > 139 SECONDS (22-32)
[2022-02-12] MEDS ORDERED: naloxone 0.4 mg/ml inj IV PRN (14:55)
--- NOTE | 2022-02-12 14:58 | NUR ---
DR LEBRON NOTIFIED OF APTT 139, PER DR LEBRON STOP THE MONET CASTANEDA Addendum: 02/12/22 at 1458 by Kimberley Dangelo RN RN Amended: Links added.
--- NOTE | 2022-02-12 15:16 | NUR ---
Report called to receiving nurse HEBER HORN. Transferred via HOSPITAL BED TO ROOM 2045 ON MONITOR. Belongings WERE LEFT IN PT ROOM 2045 DURING SURGERY. HEBER HORN AT BEDSIDE TO RECEIVE PT REPORT. LEFT LOWER LEG WITH SCANT BLOOD SHOWN TO HEBER HORN ALONG WITH LEFT GROIN DRESSING PROVENA. HEBER HORN CHECKED POR DORSALIS PEDUS, POTERIAL TIBIAL ARTERY. BED IN LOW LOCKED POSITION, WITH CALL LIGHT IN REACH. PT HOOKED UP TO ICU MONITORS. Special Issues communicated to receiving nurse. Addendum: 02/12/22 at 1523 by Kimberley Dangelo RN RN Amended: Links added.
[2022-02-12] MEDS: DexTRAN 40/D5W 500ml soln 500 ML IV SCH ×2 (15:47→21:13)
[2022-02-12] MEDS: ceFAZolin inj. 1,000 MG in dextrose 5%-water 50ml 50 ML IV SCH ×2 (16:00→23:21)
[2022-02-12] MEDS: ringers solution, lacted 1,000 ML IV SCH (16:00)
[2022-02-12] MEDS ORDERED: clopidogrel 75mg tablet PO SCH (16:00)
[2022-02-12] MEDS ORDERED: diphenhydrAMINE 50 mg/ml inj IV ONE (17:50)
[2022-02-12] MEDS: diphenhydrAMINE 50 mg/ml inj IV PRN (23:30)
[2022-02-12] MEDS: pantoprazole 40MG/NS 100ML BAG 100 ML IV SCH (23:35)
[2022-02-13] VITALS (21 sets, daily range): BP systolic 107–173; BP diastolic 29–94
[2022-02-13] MEDS: cephalexin 500mg capsule PO SCH ×2 (02:19→08:00)
[2022-02-13] MEDS: diphenhydrAMINE 50 mg/ml inj IV PRN (03:13)
--- NOTE | 2022-02-13 03:51 | NUR ---
This is a 71-year-old male, admitted 02/11/2022, day 2 of hospitalization, full code NDA, no restraints, no isolation. This patient presents to the ED with chief complaint of left foot pain that began approximately evening of 02/10/2022 at 1930. Patient noticed that there is a significant redness in his left foot second toe is quite red which resolves with elevation of his foot. The patient describes a throbbing pain his left second toe significantly sore and painful. The patient had a 4 level cervical spine fusion 2 and half weeks ago this was a 7-hour surgery. The patient has a QUANG in the left a 0.35 does have bilateral occlusion on arterial ultrasound and on CTA has a proximal and mid superficial femoral artery occlusion on the left, and a distal partial superficial occlusion on the right. Patient went for an angiogram and has a left deep femoral artery stenosis as well as a left SFA long segment occlusion. Patient is complete with vein mapping and is going to surgery with Dr Morgan Mcdonald MD- General/ Vascular Surgeon at the time of this dictation for a femoropopliteal bypass. Currently, pt is s/p left fem-pop BiPass 02/12/2022, Afebrile, AAO times 4 with subtle moments of confusion, moves all extremities, follows al commands. C/o itching Dr Mcdonald ordered Benadryl, IV, Q4 PRN, responded well. HARD C-Collar in place s/p level 4 cervical fusion (not this admission). 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 BP 140/60, +1 edema. Bilateral pedal and posterior tibial pulses checked via doppler and palpable. IVF Dextran infusing at 50ml's/hr, NS at 80ml's/hr, and Fentanyl at 75 mcgs/hr.IVF infusing via Left AC and Left wrist. Extubated 02/12/2022, RR 16-20, PO 98% RA, breath sounds, clear, diminished, equal symmetrical. Normoactive bowel sounds, soft non tender, non distended, C/o heart burn, Dr Mcdonald ordered Protonix Q12 hours, first dose 2330. Clear liquid diet well tolerated. Aguillon draining clear yellow urine. Left leg incisions, dressed with island dressing and Provena to left groin. ABX Keflex and Ancef. Pt remains safe, continue to monitor.
[2022-02-13 07:05] LABS: BASOPHILS % (AUTO) 0.2 % (0-1); EOSINOPHILS % (AUTO) 0.1 % (0-6); HEMATOCRIT 30.5 % (42.0-52.0); HEMOGLOBIN 10.2 g/dl (14.0-17.9); LYMPHOCYTES # (AUTO) 1.3 X10'3 (1.1-4.8); LYMPHOCYTES % (AUTO) 19.6 % (21-51); MEAN CORPUSCULAR HEMOGLOBIN 31.5 PG (27.0-31.0); MEAN CORPUSCULAR HGB CONC 33.5 g/dL (33.0-36.5); MEAN CORPUSCULAR VOLUME 93.8 FL (78-98); MEAN PLATELET VOLUME 7.9 FL (7.4-10.4); MONOCYTES # (AUTO) 0.7 X10'3 (0-0.9); MONOCYTES % (AUTO) 10.7 % (2-12); NEUTROPHILS # (AUTO) 4.6 X10'3 (1.8-7.7); NEUTROPHILS % (AUTO) 69.4 % (42-75); PLATELET COUNT 250 X10'3 (140-440); RED BLOOD COUNT 3.25 X10'6 (4.70-6.10); RED CELL DISTRIBUTION WIDTH 14.5 % (11.5-14.5); WHITE BLOOD COUNT 6.6 X10'3 (4.5-11.0)
[2022-02-13 07:16] LABS: ALANINE AMINOTRANSFERASE 20 U/L (12-78); ALBUMIN 2.4 G/DL (3.4-5.0); ALKALINE PHOSPHATASE 84 IU/L (46-116); ANION GAP 6 (8-16); ASPARTATE AMINO TRANSFERASE 24 U/L (10-37); BILIRUBIN,TOTAL 0.5 MG/DL (0.1-1.0); BLOOD UREA NITROGEN 11 MG/DL (7-18); BUN/CREATININE RATIO 14.3 (5.4-32.0); CALCIUM 7.9 MG/DL (8.5-10.1); CHLORIDE 105 MMOL/L (99-107); CREATININE 0.77 MG/DL (0.60-1.10); GLUCOSE 85 MG/DL (70-104); MAGNESIUM 1.7 MG/DL (1.5-2.4); POTASSIUM 3.9 MMOL/L (3.5-5.1); SODIUM 137 MMOL/L (135-145); TOTAL CARBON DIOXIDE 25.8 MMOL/L (24-32); eGFR > 90 ML/MIN
[2022-02-13] MEDS: pantoprazole 40MG/NS 100ML BAG 100 ML IV SCH ×2 (07:20→19:41)
[2022-02-13 07:44] LABS: ALBUMIN/GLOBULIN RATIO 0.6 (1.1-1.5); TOTAL PROTEIN 6.1 G/DL (6.4-8.2)
[2022-02-13] MEDS: losartan 50mg tablet PO SCH (08:00)
[2022-02-13] MEDS: cyclobenzaprine 10mg tablet PO SCH ×3 (08:00→20:59)
[2022-02-13] MEDS: gabapentin 300mg capsule PO SCH ×3 (08:00→20:59)
[2022-02-13] MEDS: citalopram 20mg tablet PO SCH (08:00)
[2022-02-13] MEDS: ceFAZolin inj. 1,000 MG in dextrose 5%-water 50ml 50 ML IV SCH (08:00)
[2022-02-13] MEDS: atorvastatin 20mg tablet PO SCH (08:00)
[2022-02-13] MEDS: aspirin 81mg, enteric-coated 1 TAB TABLET.DR PO SCH (08:00)
[2022-02-13] MEDS: cholecalciferol (vitamin D3) 1,000 unit (25mcg) tablet PO SCH (08:00)
[2022-02-13] MEDS: duloxetine 30mg CAPSULE.DR PO SCH (08:00)
[2022-02-13] MEDS: docusate sod 100mg capsule PO SCH ×2 (08:00→19:41)
[2022-02-13] MEDS: multivitamins, therapeutics tablet PO SCH (08:00)
[2022-02-13] MEDS: K and/or MAG REPLACEMENT MC SCH ×2 (08:00→19:42)
[2022-02-13] MEDS ORDERED: HYDROmorphone inj. 0.5 MG/0.5 ML DISP.SYRIN IV PRN (10:40)
[2022-02-13] MEDS ORDERED: HYDROmorphone 1 mg/ml syringe IV PRN ×2 (10:40→11:35)
[2022-02-13] MEDS: normal saline 1000ml 1,000 ML IV SCH (10:53)
[2022-02-13] MEDS: DexTRAN 40/D5W 500ml soln 500 ML IV SCH (11:54)
[2022-02-13] MEDS: clopidogrel 75mg tablet PO SCH (13:50)
[2022-02-13] MEDS: ceFOXitin 2GM-NS 100mL ADDvant 100 ML IV SCH ×2 (14:06→19:41)
[2022-02-13] MEDS: oxyCODONE/APAP 5-325mg tablet PO PRN ×2 (16:06→19:41)
[2022-02-13] MEDS: propofol 1000mg/100ml bottle 100 ML IV SCH (19:29)
[2022-02-13] MEDS: varenicline tartrate 1mg tablet PO SCH ×2 (19:29→19:31)
--- NOTE | 2022-02-13 20:43 | NUR ---
This is a 71-year-old male, admitted 02/11/2022, day 2 of hospitalization, full code NDA, no restraints, no isolation. This patient presents to the ED with chief complaint of left foot pain that began approximately evening of 02/10/2022 at 1930. Patient noticed that there is a significant redness in his left foot second toe is quite red which resolves with elevation of his foot. The patient describes a throbbing pain his left second toe significantly sore and painful. The patient had a 4 level cervical spine fusion 2 and half weeks ago this was a 7-hour surgery. The patient has a QUANG in the left a 0.35 does have bilateral occlusion on arterial ultrasound and on CTA has a proximal and mid superficial femoral artery occlusion on the left, and a distal partial superficial occlusion on the right. Patient went for an angiogram and has a left deep femoral artery stenosis as well as a left SFA long segment occlusion. Patient is complete with vein mapping and is going to surgery with Dr Morgan Mcdonald MD- General/ Vascular Surgeon at the time of this dictation for a femoropopliteal bypass. Currently, pt is s/p left fem-pop BiPass 02/12/2022, Afebrile, AAO times 4 with subtle moments of confusion, moves all extremities, follows all commands. HARD C-Collar in place s/p level 4 cervical fusion (not this admission). HR 85 SR with frequent PVC's and PAC's. BP 107/49, +1 edema. Bilateral pedal and posterior tibial pulses checked via doppler and palpable. NS at 80ml's/hr, IVF infusing via Left wrist. RR 16-20, PO 98% RA, breath sounds, clear, diminished, equal symmetrical. Normoactive bowel sounds, No BM, soft non tender, non distended, GI prophylaxis Protonix Q12 hours. Cardiac diet diet well tolerated. Aguillon draining clear yellow urine. Left leg incisions, dressed with island dressing and Provena to left groin. ABX Mefoxin. Pt remains safe, continue to monitor. Pt to be transferred to [facility]. Addendum: 02/13/22 at 210 by Sachin Ivey RN Pt ambulated in [place] was OOB to chair for several hours. Addendum: 02/13/22 at 2112 by Sachin Ivey RN Report called to Jimena HORN pt transferring to Room [facility], Tele BOX #7 placed on patient.
--- NOTE | 2022-02-13 21:00 | NUR ---
Patient in room PCU 3019. I have received report from Sachin manufacturing millwright are and had the opportunity to ask questions and assume patient care. Addendum: 02/14/22 at 0356 by Jimena Hernandez RN Amended: Links added.
[2022-02-14 02:00] VITALS: BP 156/55
--- NOTE | 2022-02-14 02:00 | NUR ---
Pt. awake alert and oriented at this time. Neck collar in place with no c/o pain at this time. CMS present to rosalba. upper extremities LLE but need for doppler to rt lower foot- sensation and movement present.. Left groin with wound vac patent with good sealing noted at this time; some swelling noted to surrounding skin with no redness noted at this time. Drsg to anterior thigh CDI at this time. Addendum: 02/14/22 at 0450 by Jimena Hernandez RN Amended: Links added.
--- NOTE | 2022-02-14 02:00 | NUR ---
pt. awake A & O at this time, no c/o pain. [place] collar in place. rt groin with vac patent with good sealing noted, surrounding skin with mild edema with no redness at this time. Incision drsg upper thigh CDI at thi time. CMS present bilaterally at this time. Pedal pulses palpable to LLE but doppler study on
[2022-02-14] MEDS: ceFOXitin 2GM-NS 100mL ADDvant 100 ML IV SCH ×4 (03:06→20:31)
[2022-02-14] MEDS: HYDROcodone/acetaminophen 10/325mg tab PO PRN ×4 (03:46→22:13)
[2022-02-14 06:00] VITALS: BP 165/57
--- NOTE | 2022-02-14 06:00 | NUR ---
Problems reprioritized. Patient report given, questions answered & plan of care reviewed with Maria Luisa HORN. Addendum: 02/14/22 at 0628 by Jimena Hernandez RN Amended: Links added.
[2022-02-14 06:44] LABS: BASOPHILS % (AUTO) 0.4 % (0-1); EOSINOPHILS # (AUTO) 0.1 X10'3 (0-0.9); EOSINOPHILS % (AUTO) 1.2 % (0-6); HEMOGLOBIN 9.5 g/dl (14.0-17.9); LYMPHOCYTES # (AUTO) 1.1 X10'3 (1.1-4.8); LYMPHOCYTES % (AUTO) 16.9 % (21-51); MEAN CORPUSCULAR HEMOGLOBIN 30.4 PG (27.0-31.0); MEAN CORPUSCULAR HGB CONC 32.7 g/dL (33.0-36.5); MEAN CORPUSCULAR VOLUME 92.8 FL (78-98); MONOCYTES # (AUTO) 0.8 X10'3 (0-0.9); MONOCYTES % (AUTO) 12.1 % (2-12); NEUTROPHILS # (AUTO) 4.6 X10'3 (1.8-7.7); NEUTROPHILS % (AUTO) 69.4 % (42-75); PLATELET COUNT 191 X10'3 (140-440); RED BLOOD COUNT 3.12 X10'6 (4.70-6.10); RED CELL DISTRIBUTION WIDTH 14.4 % (11.5-14.5); WHITE BLOOD COUNT 6.6 X10'3 (4.5-11.0)
[2022-02-14 06:54] LABS: ALANINE AMINOTRANSFERASE 17 U/L (12-78); ALBUMIN 1.8 G/DL (3.4-5.0); ALBUMIN/GLOBULIN RATIO 0.5 (1.1-1.5); ALKALINE PHOSPHATASE 83 IU/L (46-116); ASPARTATE AMINO TRANSFERASE 38 U/L (10-37); BILIRUBIN,TOTAL 0.8 MG/DL (0.1-1.0); BLOOD UREA NITROGEN 15 MG/DL (7-18); BUN/CREATININE RATIO 19.2 (5.4-32.0); CALCIUM 7.5 MG/DL (8.5-10.1); CREATININE 0.78 MG/DL (0.60-1.10); GLUCOSE 96 MG/DL (70-104); MAGNESIUM 1.8 MG/DL (1.5-2.4); TOTAL PROTEIN 5.3 G/DL (6.4-8.2); eGFR > 90 ML/MIN
[2022-02-14 06:58] LABS: ANION GAP 8 (8-16); CHLORIDE 105 MMOL/L (99-107); SODIUM 136 MMOL/L (135-145); TOTAL CARBON DIOXIDE 23.3 MMOL/L (24-32)
[2022-02-14] MEDS: K and/or MAG REPLACEMENT MC SCH ×2 (07:53→20:00)
[2022-02-14] MEDS: varenicline tartrate 1mg tablet PO SCH ×2 (08:00→20:00)
[2022-02-14] MEDS: pantoprazole 40MG/NS 100ML BAG 100 ML IV SCH (08:43)
--- NOTE | 2022-02-14 08:52 | NUR ---
Initial: Pt admitted w/ L femoral artery occlusion, underwent fempop bypass w/ wound vac 02/12 per EMR. Currently on Heart Healthy diet w/ 0% intake of first meal. Recommend liberalizing to Regular diet given lipids WNL. Pt can benefit from Ed smoothies to assist w/ wound healing. No BM documented though pt receiving routine colace. Will continue to monitor and make recommendations as appropriate Recs: 1. Liberalize to Regular diet; lipids WNL 2. Ed smoothies BIDBD; pending MD verification 3. Bowel care per rx 4. Weekly wts Addendum: 02/14/22 at [address] Amended: Links added.
[2022-02-14] MEDS: duloxetine 30mg CAPSULE.DR PO SCH (08:56)
[2022-02-14] MEDS: multivitamins, therapeutics tablet PO SCH (08:56)
[2022-02-14] MEDS: cyclobenzaprine 10mg tablet PO SCH ×3 (08:56→22:13)
[2022-02-14] MEDS: atorvastatin 20mg tablet PO SCH (08:56)
[2022-02-14] MEDS: gabapentin 300mg capsule PO SCH ×3 (08:56→20:31)
[2022-02-14] MEDS: losartan 50mg tablet PO SCH (08:56)
[2022-02-14] MEDS: clopidogrel 75mg tablet PO SCH (08:56)
[2022-02-14] MEDS: docusate sod 100mg capsule PO SCH ×2 (08:57→20:31)
[2022-02-14] MEDS: citalopram 20mg tablet PO SCH (08:57)
[2022-02-14] MEDS: cholecalciferol (vitamin D3) 1,000 unit (25mcg) tablet PO SCH (08:57)
[2022-02-14 11:00] VITALS: BP 106/67
[2022-02-14 17:06] VITALS: BP 156/68
[2022-02-14] MEDS: JUVEN Smoothie Arginine/Glut./Ca2+Bmb (Juven 19.3pkt) 240ml cup PO SCH (17:30)
--- NOTE | 2022-02-14 17:31 | NUR ---
Pt stable without assessment changes. Medicated for pain as requested by pt. Pt worked with PT today and ambulated greater than 200 ft with a FWW. pt has minimal small step into house. Bilateral Lower extremeties warm to the touch with palpable pulses. Prevena wound vac in place and functional no air leak. IV antibiotics continue. at bedside. Continue to monitor, notify MD of assessment changes.
[2022-02-14 18:00] VITALS: BP 132/55
--- NOTE | 2022-02-14 18:45 | NUR ---
Patient in room PCU 3019. I have received report from JUSTINA Glass and had the opportunity to ask questions and assume patient care.
[2022-02-14] MEDS: enoxaparin 40mg/0.4ml syringe SUBCUT SCH (20:30)
[2022-02-14] MEDS: pantoprazole 40mg Tablet.DR PO SCH (20:30)
[2022-02-14 22:00] VITALS: BP 159/67
[2022-02-15] VITALS (7 sets, daily range): BP systolic 134–165; BP diastolic 67–76
[2022-02-15] MEDS: ceFOXitin 2GM-NS 100mL ADDvant 100 ML IV SCH ×4 (02:35→20:59)
[2022-02-15] MEDS: HYDROcodone/acetaminophen 10/325mg tab PO PRN ×3 (02:47→20:57)
--- NOTE | 2022-02-15 05:50 | NUR ---
0545 Aguillon removed. 10 ml out of balloon. Pt tolerated well.
[2022-02-15 06:23] LABS: BASOPHILS % (AUTO) 0.4 % (0-1); EOSINOPHILS # (AUTO) 0.2 X10'3 (0-0.9); EOSINOPHILS % (AUTO) 3.1 % (0-6); HEMATOCRIT 26.8 % (42.0-52.0); HEMOGLOBIN 9.1 g/dl (14.0-17.9); LYMPHOCYTES # (AUTO) 1.3 X10'3 (1.1-4.8); LYMPHOCYTES % (AUTO) 23.5 % (21-51); MEAN CORPUSCULAR HEMOGLOBIN 31.3 PG (27.0-31.0); MEAN CORPUSCULAR HGB CONC 33.8 g/dL (33.0-36.5); MEAN CORPUSCULAR VOLUME 92.6 FL (78-98); MONOCYTES # (AUTO) 0.6 X10'3 (0-0.9); MONOCYTES % (AUTO) 11.1 % (2-12); NEUTROPHILS # (AUTO) 3.5 X10'3 (1.8-7.7); NEUTROPHILS % (AUTO) 61.9 % (42-75); PLATELET COUNT 181 X10'3 (140-440); RED CELL DISTRIBUTION WIDTH 14.6 % (11.5-14.5); WHITE BLOOD COUNT 5.6 X10'3 (4.5-11.0)
[2022-02-15 06:39] LABS: ALANINE AMINOTRANSFERASE 26 U/L (12-78); ALBUMIN 1.7 G/DL (3.4-5.0); ALBUMIN/GLOBULIN RATIO 0.5 (1.1-1.5); ALKALINE PHOSPHATASE 87 IU/L (46-116); ANION GAP 8 (8-16); ASPARTATE AMINO TRANSFERASE 44 U/L (10-37); BILIRUBIN,TOTAL 0.8 MG/DL (0.1-1.0); BLOOD UREA NITROGEN 11 MG/DL (7-18); BUN/CREATININE RATIO 13.1 (5.4-32.0); CALCIUM 7.3 MG/DL (8.5-10.1); CHLORIDE 106 MMOL/L (99-107); CREATININE 0.84 MG/DL (0.60-1.10); GLUCOSE 90 MG/DL (70-104); MAGNESIUM 1.8 MG/DL (1.5-2.4); POTASSIUM 3.7 MMOL/L (3.5-5.1); SODIUM 137 MMOL/L (135-145); TOTAL CARBON DIOXIDE 23.2 MMOL/L (24-32); TOTAL PROTEIN 5.2 G/DL (6.4-8.2); eGFR 90 ML/MIN
--- NOTE | 2022-02-15 06:45 | NUR ---
Patient in room PCU 3019. I have received report from Laura and had the opportunity to ask questions and assume patient care.
[2022-02-15] MEDS: JUVEN Smoothie Arginine/Glut./Ca2+Bmb (Juven 19.3pkt) 240ml cup PO SCH ×2 (07:30→09:07)
[2022-02-15] MEDS: K and/or MAG REPLACEMENT MC SCH ×2 (08:00→20:00)
[2022-02-15] MEDS: varenicline tartrate 1mg tablet PO SCH ×2 (08:00→20:00)
[2022-02-15] MEDS: losartan 50mg tablet PO SCH (08:54)
[2022-02-15] MEDS: atorvastatin 20mg tablet PO SCH (08:54)
[2022-02-15] MEDS: pantoprazole 40mg Tablet.DR PO SCH ×2 (08:55→20:58)
[2022-02-15] MEDS: duloxetine 30mg CAPSULE.DR PO SCH (08:55)
[2022-02-15] MEDS: docusate sod 100mg capsule PO SCH ×2 (08:55→20:58)
[2022-02-15] MEDS: gabapentin 300mg capsule PO SCH ×3 (08:56→20:58)
[2022-02-15] MEDS: citalopram 20mg tablet PO SCH (08:56)
[2022-02-15] MEDS: multivitamins, therapeutics tablet PO SCH (08:56)
[2022-02-15] MEDS: cyclobenzaprine 10mg tablet PO SCH ×3 (08:57→20:58)
[2022-02-15] MEDS: cholecalciferol (vitamin D3) 1,000 unit (25mcg) tablet PO SCH (08:57)
[2022-02-15] MEDS: clopidogrel 75mg tablet PO SCH (08:57)
--- NOTE | 2022-02-15 12:13 | NUR ---
relieving RN for break, pt is sleeping on bed, resp even and unlabored, skin p/w/d, c collar in place
[2022-02-15] MEDS ORDERED: magnesium hydroxide 30ml (MOM) UD suspension PO ONE (12:35)
--- NOTE | 2022-02-15 18:12 | NUR ---
Problems reprioritized. Patient report given, questions answered & plan of care reviewed with JUSTINA Glass.
--- NOTE | 2022-02-15 18:13 | NUR ---
Problems reprioritized. Patient report given, questions answered & plan of care reviewed with Laura HORN.
[2022-02-15] MEDS: enoxaparin 40mg/0.4ml syringe SUBCUT SCH (20:59)
[2022-02-16 02:00] VITALS: BP 171/78
[2022-02-16] MEDS: ceFOXitin 2GM-NS 100mL ADDvant 100 ML IV SCH ×2 (02:25→09:08)
--- NOTE | 2022-02-16 02:30 | NUR ---
Pt had BP of 171/78 HR 85 gave PRN hydralazine.
[2022-02-16 05:49] VITALS: BP 171/72
--- NOTE | 2022-02-16 05:53 | NUR ---
Pt appears to be painful but is refusing pain meds at this time. Wants to wait until before he walks this morning.
[2022-02-16 06:00] VITALS: BP 165/77
--- NOTE | 2022-02-16 06:39 | NUR ---
Problems reprioritized. Patient report given, questions answered & plan of care reviewed with JUSTINA Garay.
[2022-02-16 07:46] LABS: BASOPHILS % (AUTO) 0.6 % (0-1); EOSINOPHILS # (AUTO) 0.2 X10'3 (0-0.9); EOSINOPHILS % (AUTO) 4.6 % (0-6); HEMATOCRIT 28.5 % (42.0-52.0); HEMOGLOBIN 9.6 g/dl (14.0-17.9); LYMPHOCYTES # (AUTO) 0.9 X10'3 (1.1-4.8); LYMPHOCYTES % (AUTO) 17.9 % (21-51); MEAN CORPUSCULAR HEMOGLOBIN 31.4 PG (27.0-31.0); MEAN CORPUSCULAR HGB CONC 33.8 g/dL (33.0-36.5); MEAN CORPUSCULAR VOLUME 92.9 FL (78-98); MEAN PLATELET VOLUME 8.2 FL (7.4-10.4); MONOCYTES # (AUTO) 0.6 X10'3 (0-0.9); MONOCYTES % (AUTO) 11.5 % (2-12); NEUTROPHILS # (AUTO) 3.3 X10'3 (1.8-7.7); NEUTROPHILS % (AUTO) 65.4 % (42-75); PLATELET COUNT 197 X10'3 (140-440); RED BLOOD COUNT 3.07 X10'6 (4.70-6.10); RED CELL DISTRIBUTION WIDTH 14.3 % (11.5-14.5); WHITE BLOOD COUNT 5.1 X10'3 (4.5-11.0)
[2022-02-16 08:01] LABS: ALANINE AMINOTRANSFERASE 34 U/L (12-78); ALBUMIN 1.8 G/DL (3.4-5.0); ALBUMIN/GLOBULIN RATIO 0.5 (1.1-1.5); ALKALINE PHOSPHATASE 93 IU/L (46-116); ANION GAP 9 (8-16); ASPARTATE AMINO TRANSFERASE 50 U/L (10-37); BILIRUBIN,TOTAL 0.8 MG/DL (0.1-1.0); BLOOD UREA NITROGEN 12 MG/DL (7-18); BUN/CREATININE RATIO 14.6 (5.4-32.0); CALCIUM 7.9 MG/DL (8.5-10.1); CHLORIDE 106 MMOL/L (99-107); CREATININE 0.82 MG/DL (0.60-1.10); GLUCOSE 91 MG/DL (70-104); MAGNESIUM 1.9 MG/DL (1.5-2.4); POTASSIUM 3.8 MMOL/L (3.5-5.1); SODIUM 139 MMOL/L (135-145); TOTAL CARBON DIOXIDE 23.7 MMOL/L (24-32); TOTAL PROTEIN 5.5 G/DL (6.4-8.2); eGFR > 90 ML/MIN
[2022-02-16] MEDS: HYDROcodone/acetaminophen 10/325mg tab PO PRN (09:13)
[2022-02-16] MEDS: cyclobenzaprine 10mg tablet PO SCH (09:15)
[2022-02-16] MEDS: atorvastatin 20mg tablet PO SCH (09:15)
[2022-02-16] MEDS: gabapentin 300mg capsule PO SCH (09:16)
[2022-02-16] MEDS: cholecalciferol (vitamin D3) 1,000 unit (25mcg) tablet PO SCH (09:17)
[2022-02-16] MEDS: docusate sod 100mg capsule PO SCH (09:17)
[2022-02-16] MEDS: pantoprazole 40mg Tablet.DR PO SCH (09:18)
[2022-02-16] MEDS: multivitamins, therapeutics tablet PO SCH (09:18)
[2022-02-16] MEDS: citalopram 20mg tablet PO SCH (09:18)
[2022-02-16] MEDS: duloxetine 30mg CAPSULE.DR PO SCH (09:19)
[2022-02-16] MEDS: clopidogrel 75mg tablet PO SCH (09:19)
[2022-02-16] MEDS ORDERED: CLOP75TA34 PO (10:53)
[2022-02-16 11:00] VITALS: BP 145/68
--- NOTE | 2022-02-16 12:59 | NUR ---
Pt stable for discharge per Dr. Guo orders. All discharge instructions reviewed with patient and spouse, all questions answered. New prescriptions e scripted sent to [facility] on [address]. PIV discontinued, cannula intact. Tele DC'd. Belongings collected and sent with patient. Wheeled to to lobby via nursing staff and picked up by spouse.
== END 2022-02-16 12:15 | disposition home or self-care (01) | DRG 252 ==
LOC: ER 23:57 → ED HOLD 02-11 08:30 → EEVIPCON 02-11 08:30 → PCU 3S 02-11 15:07 → ICU 2S 02-11 17:56 → PCU 3S 02-13 21:30
PROVIDERS: ADMIT Family Medicine; ATTEND Family Medicine
PROC: B42H1ZZ Computerized Tomography (CT Scan) of Bilateral Lower Extremity Arteries using Low Osmolar Contrast (ICD-10-PCS; 2022-02-11)
PROC: B41D1ZZ Fluoroscopy of Aorta and Bilateral Lower Extremity Arteries using Low Osmolar Contrast (ICD-10-PCS; 2022-02-11)
PROC: 04CL0ZZ Extirpation of Matter from Left Femoral Artery, Open Approach (ICD-10-PCS; 2022-02-12)
PROC: 04CL0ZZ Extirpation of Matter from Left Femoral Artery, Open Approach (ICD-10-PCS; 2022-02-12)
PROC: 04UL0KZ Supplement Left Femoral Artery with Nonautologous Tissue Substitute, Open Approach (ICD-10-PCS; 2022-02-12)
PROC: 041L0JL Bypass Left Femoral Artery to Popliteal Artery with Synthetic Substitute, Open Approach (ICD-10-PCS; principal; 2022-02-12 10:16)
DX: I70.202 Unspecified atherosclerosis of native arteries of extremities, left leg (principal); I71.3 Abdominal aortic aneurysm, ruptured; E78.5 Hyperlipidemia, unspecified; F32.A Depression, unspecified; G89.29 Other chronic pain; M47.812 Spondylosis without myelopathy or radiculopathy, cervical region; Z20.822 Contact with and (suspected) exposure to COVID-19; M54.9 Dorsalgia, unspecified; G62.9 Polyneuropathy, unspecified; I10 Essential (primary) hypertension; K59.00 Constipation, unspecified; Z87.891 Personal history of nicotine dependence; Z95.5 Presence of coronary angioplasty implant and graft; Z98.1 Arthrodesis status; Z79.899 Other long term (current) drug therapy; Z79.82 Long term (current) use of aspirin; Z82.49 Family history of ischemic heart disease and other diseases of the circulatory system; R50.82 Postprocedural fever
CPT/HCPCS: 36245; 93308; 99285; Z7506; Z7508; 36415; 36600; 71045; 73551; 73706; 75716; 76000; 76937; 77002; 80053; 80061; 82803; 82948; 83735; 85018; 85025; 85610; 85730; 86885; 86900; 86901; 87635; 93005; 93922; 93925; 93971; 94002; 94003; 94760; 97110; 97116; 97161; 97530; 99152; 99153; A4618; A6455; A7000; C1758; C1768; C1769; C1894; C9113; G0378; J0131; J0360; J0690; J0694; J1100; J1200; J1644; J1650; J2250; J2270; J2405; J2704; J2710; J3010; J3490; J7030; J7040; J7060; J7100; J7120; P9045; Q9967

== ENCOUNTER 2022-03-17 11:02 | Outpatient (CLI) | payer BC, MEDICARE ==
[~2022-03-17 11:02] MED LIST changes: -ASPI-611 PO; +CEPH-585 PO; +CLOP75TA34 PO; +CYCL5TAB PO; +DOCU-342 PO; +GABA600T PO; +HYDR-3972 PO; +RESV1TAB2 PO; -RESV50CA PO
[2022-03-17 12:14] LABS: BASOPHILS % (AUTO) 0.6 % (0-1); EOSINOPHILS # (AUTO) 0.1 X10'3 (0-0.9); EOSINOPHILS % (AUTO) 1.9 % (0-6); HEMATOCRIT 34.1 % (42.0-52.0); HEMOGLOBIN 11.1 g/dl (14.0-17.9); LYMPHOCYTES # (AUTO) 1.6 X10'3 (1.1-4.8); LYMPHOCYTES % (AUTO) 26.3 % (21-51); MEAN CORPUSCULAR HEMOGLOBIN 29.8 PG (27.0-31.0); MEAN CORPUSCULAR HGB CONC 32.5 g/dL (33.0-36.5); MEAN CORPUSCULAR VOLUME 91.7 FL (78-98); MEAN PLATELET VOLUME 7.6 FL (7.4-10.4); MONOCYTES # (AUTO) 0.5 X10'3 (0-0.9); MONOCYTES % (AUTO) 7.6 % (2-12); NEUTROPHILS # (AUTO) 3.8 X10'3 (1.8-7.7); NEUTROPHILS % (AUTO) 63.6 % (42-75); PLATELET COUNT 284 X10'3 (140-440); RED BLOOD COUNT 3.73 X10'6 (4.70-6.10); RED CELL DISTRIBUTION WIDTH 14.4 % (11.5-14.5)
[2022-03-17 12:33] LABS: ALANINE AMINOTRANSFERASE 26 U/L (12-78); ALBUMIN/GLOBULIN RATIO 0.7 (1.1-1.5); ALKALINE PHOSPHATASE 123 IU/L (46-116); ANION GAP 8 (8-16); ASPARTATE AMINO TRANSFERASE 20 U/L (10-37); BILIRUBIN,TOTAL 0.4 MG/DL (0.1-1.0); BLOOD UREA NITROGEN 23 MG/DL (7-18); BUN/CREATININE RATIO 34.3 (5.4-32.0); CALCIUM 9.6 MG/DL (8.5-10.1); CHLORIDE 105 MMOL/L (99-107); CREATININE 0.67 MG/DL (0.60-1.10); GLUCOSE 98 MG/DL (70-104); SODIUM 138 MMOL/L (135-145); TOTAL CARBON DIOXIDE 25.4 MMOL/L (24-32); TOTAL PROTEIN 7.3 G/DL (6.4-8.2); eGFR > 90 ML/MIN
[2022-03-19 08:28] LABS: FTI 3.1 (1.2-4.9); THYROXINE (T4) 9.8 ug/dL (4.5-12.0)
== END 2022-03-17 23:59 | disposition home or self-care (01) ==
LOC: LAB 11:02
PROVIDERS: ATTEND Family Medicine
DX: R60.0 Localized edema (principal); L03.818 Cellulitis of other sites; I73.9 Peripheral vascular disease, unspecified; E04.9 Nontoxic goiter, unspecified; M62.521 Muscle wasting and atrophy, not elsewhere classified, right upper arm
CPT/HCPCS: 36415; 80053; 84436; 84439; 84443; 84479; 85025

== ENCOUNTER 2022-03-22 09:24 | Outpatient (CLI) | payer BC, MEDICARE | END 2022-03-22 23:59 | disposition home or self-care (01) | LOC: RAD 09:24 | PROVIDERS: ATTEND Surgery | DX: C34.90 Malignant neoplasm of unspecified part of unspecified bronchus or lung (principal); D35.01 Benign neoplasm of right adrenal gland; R91.1 Solitary pulmonary nodule; J84.10 Pulmonary fibrosis, unspecified; N28.1 Cyst of kidney, acquired; J43.9 Emphysema, unspecified; Q25.46 Tortuous aortic arch; I25.10 Atherosclerotic heart disease of native coronary artery without angina pectoris; M47.814 Spondylosis without myelopathy or radiculopathy, thoracic region | CPT/HCPCS: 71250 ==

== ENCOUNTER 2022-04-23 09:31 | Outpatient (CLI) | payer BC, MEDICARE | END 2022-04-23 23:59 | disposition home or self-care (01) | LOC: RAD 09:31 | PROVIDERS: ATTEND Orthopaedic Surgery | DX: M25.751 Osteophyte, right hip (principal); M25.60 Stiffness of unspecified joint, not elsewhere classified; Z96.643 Presence of artificial hip joint, bilateral | CPT/HCPCS: 73502 ==

== ENCOUNTER 2022-05-13 08:23 | Outpatient (CLI) | payer BC, MEDICARE | END 2022-05-13 23:59 | disposition home or self-care (01) | LOC: VAS 08:23 | PROVIDERS: ATTEND Surgery | DX: Z48.812 Encounter for surgical aftercare following surgery on the circulatory system (principal); Z95.820 Peripheral vascular angioplasty status with implants and grafts | CPT/HCPCS: 93922; 93926 ==

== ENCOUNTER 2022-06-18 10:59 | Outpatient (CLI) | payer BC ==
[2022-06-18 12:09] LABS: BASOPHILS % (AUTO) 0.7 % (0-1); EOSINOPHILS # (AUTO) 0.1 X10'3 (0-0.9); EOSINOPHILS % (AUTO) 2.4 % (0-6); HEMATOCRIT 35.1 % (42.0-52.0); HEMOGLOBIN 11.8 g/dl (14.0-17.9); LYMPHOCYTES # (AUTO) 1.4 X10'3 (1.1-4.8); LYMPHOCYTES % (AUTO) 27.7 % (21-51); MEAN CORPUSCULAR HEMOGLOBIN 30.4 PG (27.0-31.0); MEAN CORPUSCULAR HGB CONC 33.7 g/dL (33.0-36.5); MEAN CORPUSCULAR VOLUME 90.3 FL (78-98); MEAN PLATELET VOLUME 7.7 FL (7.4-10.4); MONOCYTES # (AUTO) 0.4 X10'3 (0-0.9); NEUTROPHILS # (AUTO) 3.2 X10'3 (1.8-7.7); NEUTROPHILS % (AUTO) 62.2 % (42-75); PLATELET COUNT 250 X10'3 (140-440); RED BLOOD COUNT 3.89 X10'6 (4.70-6.10); RED CELL DISTRIBUTION WIDTH 15.8 % (11.5-14.5); WHITE BLOOD COUNT 5.1 X10'3 (4.5-11.0)
[2022-06-18 12:25] LABS: ALANINE AMINOTRANSFERASE 24 U/L (12-78); ALBUMIN 3.5 G/DL (3.4-5.0); ALKALINE PHOSPHATASE 96 IU/L (46-116); ANION GAP 10 (8-16); ASPARTATE AMINO TRANSFERASE 21 U/L (10-37); BILIRUBIN,TOTAL 0.5 MG/DL (0.1-1.0); BLOOD UREA NITROGEN 24 MG/DL (7-18); BUN/CREATININE RATIO 26.7 (5.4-32.0); CALCIUM 8.9 MG/DL (8.5-10.1); CHLORIDE 107 MMOL/L (99-107); GLUCOSE 120 MG/DL (70-104); POTASSIUM 3.6 MMOL/L (3.5-5.1); SODIUM 143 MMOL/L (135-145); TOTAL CARBON DIOXIDE 25.9 MMOL/L (24-32); TOTAL PROTEIN 7.1 G/DL (6.4-8.2); eGFR 83 ML/MIN
[2022-06-21 09:17] LABS: ALBUMIN 3.1 g/dL (2.9-4.4); BETA GLOBULIN 1.1 g/dL (0.7-1.3); GAMMA GLOBULIN 1.2 g/dL (0.4-1.8); GLOBULIN, TOTAL 3.2 g/dL (2.2-3.9); M-SPIKE Not Observed g/dL (Not Observed); PROTEIN, TOTAL, SERUM 6.3 g/dL (6.0-8.5)
[2022-06-21 15:24] LABS: ALBUMIN, UR Note: % (.); PROTEIN,TOTAL,URINE 24.6 mg/dL (Not Estab.)
== END 2022-06-18 23:59 | disposition home or self-care (01) ==
LOC: LAB 10:59
PROVIDERS: ATTEND Internal Medicine Hematology & Oncology
DX: R91.8 Other nonspecific abnormal finding of lung field (principal)
CPT/HCPCS: 36415; 80053; 84155; 84156; 84165; 84166; 85025

== ENCOUNTER 2022-10-28 05:36 | Inpatient (IN) | payer BC ==
[2022-10-21 11:33] LABS: BASOPHILS % (AUTO) 0.8 % (0-1); EOSINOPHILS # (AUTO) 0.2 X10'3 (0-0.9); EOSINOPHILS % (AUTO) 2.7 % (0-6); LYMPHOCYTES # (AUTO) 1.6 X10'3 (1.1-4.8); MEAN CORPUSCULAR HEMOGLOBIN 31.3 PG (27.0-31.0); MEAN CORPUSCULAR HGB CONC 32.8 g/dL (33.0-36.5); MEAN CORPUSCULAR VOLUME 95.6 FL (78-98); MEAN PLATELET VOLUME 7.7 FL (7.4-10.4); MONOCYTES # (AUTO) 0.5 X10'3 (0-0.9); MONOCYTES % (AUTO) 8.2 % (2-12); NEUTROPHILS # (AUTO) 3.5 X10'3 (1.8-7.7); NEUTROPHILS % (AUTO) 61.3 % (42-75); PRE OP HEMATOCRIT 39.3 % (42.0-52.0); PRE OP HEMOGLOBIN 12.9 g/dL (14.0-17.9); PRE OP PLATELET COUNT 276 X10'3 (140-440); RED BLOOD COUNT 4.12 X10'6 (4.70-6.10)
[2022-10-21 12:21] LABS: ALBUMIN 3.5 G/DL (3.4-5.0); ALBUMIN/GLOBULIN RATIO 0.9 (1.1-1.5); ALKALINE PHOSPHATASE 92 IU/L (46-116); BLOOD UREA NITROGEN 25 MG/DL (7-18); BUN/CREATININE RATIO 30.9 (5.4-32.0); CALCIUM 9.1 MG/DL (8.5-10.1); CHLORIDE 102 MMOL/L (99-107); CREATININE 0.81 MG/DL (0.60-1.10); PRE OP ALT 20 U/L (30-65); PRE OP ANION GAP 9 (8-16); PRE OP AST 25 U/L (10-37); PRE OP BILIRUB, TOTAL 0.5 MG/DL (0.0-1.0); PRE OP GLUCOSE 96 MG/DL (70-104); PRE OP POTASSIUM 4.2 MMOL/L (3.4-5.1); PRE OP SODIUM 138 MMOL/L (135-145); TOTAL CARBON DIOXIDE 26.9 MMOL/L (24-32); TOTAL PROTEIN 7.3 G/DL (6.4-8.2); eGFR > 90 ML/MIN
[~2022-10-28] VITALS: Ht 172.7 cm; Wt 80.7 kg
[2022-10-28] VITALS (18 sets, daily range): BP systolic 97–142; BP diastolic 47–84
[~2022-10-28 05:36] MED LIST changes: -CEPH-585 PO; +CLOP75TA33 PO; -CLOP75TA34 PO; -CYCL5TAB PO; -DOCU-342 PO; -DULO30CA52 PO; +GABA300C PO; -HYDR-3972 PO; +LOSA25TA41 PO; -LOSA50TA3 PO; +MAGN400C PO; +MELA10TA2 PO; -VARE1TAB24 PO; +acetaminophen 325mg tablet PO ONE; +ceFAZolin inj. 2,000 MG in dextrose 5%-water 100 ML IV ONE; +celeCOXIB 100mg capsule PO ONE; +famotidine 20mg tablet PO ONE; +gabapentin 300mg capsule PO ONE; +metoclopramide 5 mg/ml inj IV ONE; +oxyCODONE SR 10mg (sust. release) tab -2 tabs (20mg) PO ONE; +ringers solution, lacted 1,000 ML IV SCH; +tranexamic acid inj. 1,000 MG in normal saline IV soln 100ML IV ONE; +vancomycin 1,500 MG in NS 300ml IV soln IV ONE
--- NOTE | 2022-10-28 05:45 | NUR ---
PT ARRIVED TO PAS UNIT FOR R ABRAN. COMPLETED 5 DAYS OF [employer] SHOWERS AND READ PACKET FOR EDUCATION. PEDAL PULSES STRONG. CSM W/N/L.
[2022-10-28] MEDS ORDERED: CLIN300C54 PO (06:23)
[2022-10-28] MEDS ORDERED: ketorolac trometh. 30mg/ml inj. ONE (06:26)
[2022-10-28] MEDS ORDERED: ROPIVAcaine 0.5% (5mg/ml) 30ml vial ONE (06:27)
[2022-10-28] MEDS ORDERED: cloNIDine hcl/PF 100mcg/ml inj ONE (06:27)
[2022-10-28] MEDS ORDERED: vancomycin 1,000mg inj ONE (06:27)
[2022-10-28] MEDS ORDERED: epiNEPHrine 1 mg/ml inj ONE (06:27)
[2022-10-28] MEDS ORDERED: ondansetron/PF 4mg/2ml inj IV PRN ×2 (07:00→08:35)
[2022-10-28] MEDS ORDERED: HYDROmorphone 1 mg/ml syringe IV PRN (07:00)
[2022-10-28] MEDS ORDERED: tranexamic acid inj. 1,000 MG in normal saline 100ml IV soln 90 ML IV ONE (07:00)
[2022-10-28] MEDS ORDERED: naloxone 0.4 mg/ml inj IV PRN (07:00)
[2022-10-28] MEDS ORDERED: HYDROmorphone inj. 0.5 MG/0.5 ML DISP.SYRIN IV PRN (07:00)
[2022-10-28] MEDS ORDERED: bisacodyl 10mg suppository rectal RC PRN (07:00)
[2022-10-28] MEDS ORDERED: acetaminophen 325mg tablet PO PRN (07:00)
[2022-10-28] MEDS ORDERED: magnesium hydroxide 30ml (MOM) UD suspension PO PRN (07:00)
[2022-10-28] MEDS ORDERED: diphenhydrAMINE 25mg capsule PO PRN ×2 (07:00)
[2022-10-28] MEDS ORDERED: magnesium oxide 400mg tablet PO PRN (07:10)
[2022-10-28] MEDS ORDERED: MIDAZolam 1 MG/ML 5ML VIAL ONE (07:18)
[2022-10-28] MEDS ORDERED: FENTANYL CITRATE/PF 50 MCG/1 ML VIAL ONE (07:18)
[2022-10-28] MEDS ORDERED: BUPIVAcaine/PF 7.5mg/ml (0.75%) 10ml vial ONE (07:43)
[2022-10-28] MEDS ORDERED: ePHEDrine 50MG/ML INJ. ONE (07:43)
[2022-10-28] MEDS ORDERED: albumin (Human) 5% 250ml 250 ML IV ONE (08:11)
[2022-10-28] MEDS ORDERED: ROPIVAcaine 0.5% (5mg/ml) 30ml vial IJ ONE (08:21)
[2022-10-28] MEDS ORDERED: epiNEPHrine 1 mg/ml inj SQ ONE (08:21)
[2022-10-28] MEDS ORDERED: cloNIDine hcl/PF 100mcg/ml inj EP ONE (08:21)
[2022-10-28] MEDS ORDERED: ketorolac trometh. 30mg/ml inj. IM ONE (08:21)
[2022-10-28] MEDS ORDERED: proCHLORperazine 10 MG/2 ml inj IV PRN (08:35)
[2022-10-28] MEDS ORDERED: morphine 2 MG/ML inj. syringe IV PRN (08:35)
[2022-10-28] MEDS ORDERED: morphine 4 MG/ML inj SYRINge IV PRN (08:35)
[2022-10-28] MEDS ORDERED: ringers solution, lacted 1,000 ML IV SCH (08:35)
[2022-10-28] MEDS ORDERED: meperidine/PF 25mg/ml syringe IV PRN ×3 (08:35)
[2022-10-28] MEDS ORDERED: LIDOcaine 1%/PF 5ML 10 MG/ML VIAL ONE (08:42)
[2022-10-28] MEDS ORDERED: propofol inj 20 ML IV ONE (08:42)
--- NOTE | 2022-10-28 09:03 | NUR ---
Received from OR via ORTHO BED WITH NO OHFT, accompanied by Anesthesiologist and report given by Anesthesiolgist. PATIENT WITH 20G PIV IN LEFT UE RUNNING LR AT 100. PATIENT SENSATION LEVEL AT T11-T12 2' SPINAL. SCDS DONNED UPON ARRIVAL PATIENT. DENIES PAIN. OCCASIONAL PVC AND PAC AT TIMES. WILL CONTINUE TO ASSESS. Addendum: 10/28/22 at 0928 by Jayy Dangelo RN, RN Amended: Links added.
--- NOTE | 2022-10-28 09:39 | NUR ---
ADDENDUM: LOGAN VAC TO RIGHT THIGH DRESSING. Addendum: 10/28/22 at 0942 by Jayy Dangelo RN, RN Amended: Links added.
--- NOTE | 2022-10-28 10:10 | NUR ---
Patient in room PCU 3020. I have received report from Demetrice HORN and had the opportunity to ask questions and assume patient care. Pt denies pain, Needs, Picovac working on right hip inc. Call light in reach Addendum: 10/28/22 at 1440 by Joceline Pepper RN Amended: Links added.
[2022-10-28] MEDS: potassium cl 20mEq in 1/2 NS 1,000 ML IV SCH ×3 (11:49→23:20)
[2022-10-28] MEDS ORDERED: tranexamic acid inj. 800 MG in normal saline 100ml IV soln 92 ML IV ONE (12:00)
[2022-10-28] MEDS: HYDROcodone/acetaminophen 10/325mg tab PO PRN ×2 (12:55→19:29)
--- NOTE | 2022-10-28 17:41 | NUR ---
Pt has not voided from time of arrival on PCU. Pt states he is getting ready to void. Will continue to monitor. Pt up in chair after walking with physical Therapy. Denies needs and pain. Call light in reach.
--- NOTE | 2022-10-28 17:48 | NUR ---
pt assisted to stand with assist x2. Voided 400 ml dark yellow strong smelling urine. Pt taking po fluids and 1/2 NS c 20 KCL infusing at 125 as ordered.
--- NOTE | 2022-10-28 18:19 | NUR ---
Problems reprioritized. Patient report given, questions answered & plan of care reviewed with Cece HORN. Pt denies needs, up in chair. Call light in reach. Addendum: 10/28/22 at 1820 by Joceline Pepper RN Amended: Links added.
[2022-10-28] MEDS ORDERED: VANCOMYCIN 1,500MG inj. 1,500 MG in normal saline 500ml IV soln 300 ML IV ONE (19:00)
[2022-10-28] MEDS ORDERED: clopidogrel 75mg tablet PO SCH (21:00)
[2022-10-28] MEDS ORDERED: losartan 25mg tablet PO SCH (21:00)
[2022-10-28] MEDS ORDERED: sennosides 8.6mg tablet PO SCH (21:00)
[2022-10-28] MEDS: gabapentin 300mg capsule PO SCH (21:50)
--- NOTE | 2022-10-28 22:00 | NUR ---
Patient in room PCU 3020. I have received report from JUSTINA Felix and had the opportunity to ask questions and assume patient care.
--- NOTE | 2022-10-28 22:46 | NUR ---
reported to Lin - pt received dialudid for pain. bed alarm active in case of not using call light for help - fall risk. right lg brace on.
[2022-10-29] MEDS: HYDROcodone/acetaminophen 10/325mg tab PO PRN ×2 (01:19→05:24)
[2022-10-29 02:00] VITALS: BP 128/62
--- NOTE | 2022-10-29 04:21 | NUR ---
dressing fell off on his left finger,new dressing was apply 4x4 and tape.
[2022-10-29 06:00] VITALS: BP 155/74
--- NOTE | 2022-10-29 06:07 | NUR ---
Pt. walked 600 f with nursing.He did very well
--- NOTE | 2022-10-29 06:08 | NUR ---
Problems reprioritized. Patient report given, questions answered & plan of care reviewed with JUSTINA Murphy.
--- NOTE | 2022-10-29 06:33 | NUR ---
Patient in room PCU 3020. I have received report from Lin ARREOLA and had the opportunity to ask questions and assume patient care. Pt back in bed after walking 600 feet with FWW. Right knee embodier on. Call light in reach. Bedside report completed. Addendum: 10/29/22 at 0635 by Joceline Pepper RN Amended: Links added.
[2022-10-29 07:45] LABS: BASOPHILS % (AUTO) 0.5 % (0-1); EOSINOPHILS # (AUTO) 0.1 X10'3 (0-0.9); EOSINOPHILS % (AUTO) 0.8 % (0-6); HEMATOCRIT 31.4 % (42.0-52.0); HEMOGLOBIN 10.5 g/dl (14.0-17.9); LYMPHOCYTES # (AUTO) 1.2 X10'3 (1.1-4.8); LYMPHOCYTES % (AUTO) 17.7 % (21-51); MEAN CORPUSCULAR HGB CONC 33.5 g/dL (33.0-36.5); MEAN CORPUSCULAR VOLUME 95.5 FL (78-98); MONOCYTES # (AUTO) 0.5 X10'3 (0-0.9); MONOCYTES % (AUTO) 7.5 % (2-12); NEUTROPHILS # (AUTO) 4.9 X10'3 (1.8-7.7); NEUTROPHILS % (AUTO) 73.5 % (42-75); PLATELET COUNT 203 X10'3 (140-440); RED BLOOD COUNT 3.29 X10'6 (4.70-6.10); RED CELL DISTRIBUTION WIDTH 13.9 % (11.5-14.5); WHITE BLOOD COUNT 6.7 X10'3 (4.5-11.0)
[2022-10-29] MEDS ORDERED: multivitamins, therapeutics tablet PO SCH (08:00)
[2022-10-29] MEDS ORDERED: atorvastatin 20mg tablet PO SCH (08:00)
[2022-10-29] MEDS ORDERED: ascorbic acid 500mg tablet PO SCH (08:00)
[2022-10-29] MEDS: gabapentin 300mg capsule PO SCH (08:12)
[2022-10-29] MEDS ORDERED: aspirin 325mg tablet PO SCH (08:30)
[2022-10-29 08:38] LABS: ANION GAP 6 (8-16); CHLORIDE 102 MMOL/L (99-107); POTASSIUM 4.3 MMOL/L (3.5-5.1); SODIUM 134 MMOL/L (135-145); TOTAL CARBON DIOXIDE 25.8 MMOL/L (24-32)
--- NOTE | 2022-10-29 11:20 | NUR ---
All written and verbal orders for d/c given. All questions answered. pt stated he had all belongings home with . Nader HORN stated she would change drsg at home, arie drsg provided. pt left hospital via w/c. home with . Addendum: 10/29/22 at 1121 by Joceline Pepper RN Amended: Links added.
--- NOTE | 2022-10-29 11:47 | NUR ---
Joint surgery consult: Pt s/p R hip surgery this admit per EMR. Pt discharged prior to RD visit; written high protein diet ed w/ RD contact information mailed to pt home address provided in EMR. Addendum: 10/29/22 at [address] Amended: Links added.
[2022-10-29] MEDS ORDERED: celeCOXIB 100mg capsule PO SCH (20:00)
[2022-10-29] MEDS ORDERED: citalopram 20mg tablet PO SCH (21:00)
== END 2022-10-29 11:19 | disposition home or self-care (01) | DRG 470 ==
LOC: PAS 05:36 → PCU 3S 07:00
PROVIDERS: ADMIT Orthopaedic Surgery; ATTEND Orthopaedic Surgery
PROC: 3E0T3BZ Introduction of Anesthetic Agent into Peripheral Nerves and Plexi, Percutaneous Approach (ICD-10-PCS; 2022-10-28)
PROC: 3E0T33Z Introduction of Anti-inflammatory into Peripheral Nerves and Plexi, Percutaneous Approach (ICD-10-PCS; 2022-10-28)
PROC: 0SR906Z Replacement of Right Hip Joint with Oxidized Zirconium on Polyethylene Synthetic Substitute, Open Approach (ICD-10-PCS; principal; 2022-10-28 07:18)
DX: M16.11 Unilateral primary osteoarthritis, right hip (principal); Z79.82 Long term (current) use of aspirin
CPT/HCPCS: Z7506; Z7508; 36415; 72170; 80051; 80053; 82948; 85025; 86885; 86900; 86901; 87081; 97110; 97116; 97161; 97530; A4615; A7000; C1776; G0378; J0171; J0690; J0735; J1170; J1885; J2250; J2704; J2765; J2795; J3010; J3370; J3480; J3490; J7040; J7060; J7120; P9045

== ENCOUNTER 2022-12-27 10:57 | Outpatient (CLI) | payer BC ==
[~2022-12-27 10:57] MED LIST changes: +CLIN300C54 PO; -acetaminophen 325mg tablet PO ONE; -ceFAZolin inj. 2,000 MG in dextrose 5%-water 100 ML IV ONE; -celeCOXIB 100mg capsule PO ONE; -famotidine 20mg tablet PO ONE; -gabapentin 300mg capsule PO ONE; -metoclopramide 5 mg/ml inj IV ONE; -oxyCODONE SR 10mg (sust. release) tab -2 tabs (20mg) PO ONE; -ringers solution, lacted 1,000 ML IV SCH; -tranexamic acid inj. 1,000 MG in normal saline IV soln 100ML IV ONE; -vancomycin 1,500 MG in NS 300ml IV soln IV ONE
== END 2022-12-27 23:59 | disposition home or self-care (01) ==
LOC: VAS 10:57
PROVIDERS: ATTEND Surgery
DX: I73.9 Peripheral vascular disease, unspecified (principal)
CPT/HCPCS: 93922; 93925

== ENCOUNTER 2022-12-27 11:05 | Outpatient (CLI) | payer BC ==
[2022-12-27 11:42] LABS: BASOPHILS % (AUTO) 0.9 % (0-1); EOSINOPHILS # (AUTO) 0.2 X10'3 (0-0.9); EOSINOPHILS % (AUTO) 3.4 % (0-6); HEMATOCRIT 36.5 % (42.0-52.0); HEMOGLOBIN 12.4 g/dl (14.0-17.9); LYMPHOCYTES # (AUTO) 1.3 X10'3 (1.1-4.8); LYMPHOCYTES % (AUTO) 28.3 % (21-51); MEAN CORPUSCULAR HEMOGLOBIN 32.1 PG (27.0-31.0); MEAN CORPUSCULAR VOLUME 94.1 FL (78-98); MEAN PLATELET VOLUME 7.1 FL (7.4-10.4); MONOCYTES # (AUTO) 0.4 X10'3 (0-0.9); NEUTROPHILS # (AUTO) 2.7 X10'3 (1.8-7.7); NEUTROPHILS % (AUTO) 58.4 % (42-75); PLATELET COUNT 265 X10'3 (140-440); RED BLOOD COUNT 3.88 X10'6 (4.70-6.10); RED CELL DISTRIBUTION WIDTH 13.8 % (11.5-14.5); WHITE BLOOD COUNT 4.7 X10'3 (4.5-11.0)
[2022-12-27 12:06] LABS: ALANINE AMINOTRANSFERASE 24 U/L (12-78); ALBUMIN 3.4 G/DL (3.4-5.0); ALBUMIN/GLOBULIN RATIO 0.9 (1.1-1.5); ALKALINE PHOSPHATASE 113 IU/L (46-116); ANION GAP 4 (8-16); ASPARTATE AMINO TRANSFERASE 21 U/L (10-37); BILIRUBIN,TOTAL 0.4 MG/DL (0.1-1.0); BLOOD UREA NITROGEN 25 MG/DL (7-18); BUN/CREATININE RATIO 31.3 (5.4-32.0); CHLORIDE 107 MMOL/L (99-107); GLUCOSE 95 MG/DL (70-104); LACTATE DEHYDROGENASE 207 U/L (85-227); POTASSIUM 4.5 MMOL/L (3.5-5.1); SODIUM 139 MMOL/L (135-145); TOTAL CARBON DIOXIDE 28.5 MMOL/L (24-32); TOTAL PROTEIN 7.3 G/DL (6.4-8.2); eGFR > 90 ML/MIN
[2022-12-27 12:17] LABS: % IRON SATURATION 20 % (11-46); IRON 61 UG/DL (53-167); TOTAL IRON BINDING CAPACITY 309 UG/DL (259-388)
[2022-12-27 12:35] LABS: FERRITIN 42 NG/ML (26-388)
[2022-12-28 09:16] LABS: IMMUNOGLOBULIN A, QN, SERUM 271 mg/dL (61-437); IMMUNOGLOBULIN G, QN, SERUM 1249 mg/dL (603-1613); IMMUNOGLOBULIN M, QN, SERUM 118 mg/dL (15-143); TRANSFERRIN 260 mg/dL (177-329)
== END 2022-12-27 23:59 | disposition home or self-care (01) ==
LOC: LAB 11:05
PROVIDERS: ATTEND Internal Medicine Hematology & Oncology
DX: D47.2 Monoclonal gammopathy (principal); D64.9 Anemia, unspecified
CPT/HCPCS: 36415; 80053; 82607; 82728; 82784; 83540; 83550; 83615; 84155; 84156; 84165; 84166; 84466; 84550; 85025; 85651; 86334; 86335

== ENCOUNTER 2023-08-18 10:06 | Outpatient (CLI) | payer MEDICARE, OTHER | END 2023-08-18 23:59 | disposition home or self-care (01) | LOC: VAS 10:06 | PROVIDERS: ATTEND Surgery | DX: I73.9 Peripheral vascular disease, unspecified (principal) | CPT/HCPCS: 93922; 93925 ==